=== PATIENT | female | born 1950 | race Two or more races ===

== ENCOUNTER → 2024-03-29 08:14 | Outpatient (REF) | payer MEDICARE, OTHER, SELFPAY ==
--- NOTE | 2024-03-30 08:06 | HPS.HSE ---
Family Physician
-
Family Physician: Consuelo Acevedo
Chief Complaint
-
Gynecologic Cancer (Ovary)
History of Present Illness
73�year�old��woman�presenting�for�surgical�consultation�with�a�known�diagnosis�of�high�grade�serous�carcinoma�referred�to�me by�Dr�Ian�Chasky.�
Patient�has�had�a�routine�mammogram�that�was�abnormal�in�October�2017,�underwent�a�core�needle�biopsy�November�nd was�found�to�have�invasive�ductal�carcinoma�grade�2�ER/MO�positive�HER2�1�positive�she�then�underwent�left�lumpectomy�and
sentinel�lymph�node�biopsies�showing�residual�16mm�invasive�ductal�carcinoma�with�2�lymph�nodes�which�were�negative.�BRCA test�was�performed�and�the�result�was�shown�that�she�was�low�risk.�Test�was�negative�for�any�mutation.�She�did�undergo�adjuvant
radiation�to�the�left�breast�and�completed�this�in�February�2018.�She�started�Arimidex�in�March�2019.�this�was�recently�completed after�5�years.�
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
lymphoma.�She�was�followed�by�Dr�Holloway�for�this�initially�and�on�PET�scn�some�abnormalities�showed�early�summer.� Biopsy�of�the�abdominal�wall�mass�was�performed�[place]�1,�revealing�high�grade�serous�carcinoma�metastatic�from�a
m�llerian�tract�primary.�There�is�reactivity�for�CK7�WT1�ER�and�p16,�negative�for�CK20�Napsin�1�TTF�1�and�MO.�she�saw�Dr Warshall�a�couple�times�and�considered�primary�debulking�surgery�v�NACT�but�was�very�concerned�about�possible�need�for�bowel
resection�and�rare�possibility�of�ostomy�formation�post�op.�She�started�NACT�with�taxol�carbo�initially�with�Dr�Damsker�and�her�care
was�transferred�to�Dr�Chasky.�Lat�week�she�did�receive�cycle�3.�There�seems�to�have�been�not�initial�CA�125�marker�drawn.�most recent�CA�125�is�35.�
Social�History Patient�denies�ever�using�tobacco. Social�use�of�alcohol. Denies�any�illicit�drug�use. Patient�has�not�had�any�occupational�exposure. Marital�Status:�Patient�is�
�is�older,�recent�covid,�and�pneumonia�,�prolonged�hospitalization,�her�is�recovering�in�SNF Gynecological�History
Age�at�Menarche�14�years.�Age�at�menopause:�47�years.�Patient�reports�1�pregnancies.�Her�age�at�first�full�term��was�42 years. No�history�of�hormone�replacement�therapy. Family�Medical�History Father�prostate�ca Mother�colon�Ca
Patient�Reported�Level�of�Pain Pain:�no�pain
Exams: CT Chest/abd/pel W Iv Cont
CPT: 07918, 53071
EXAMINATION: CT of the chest, abdomen and pelvis with intravenous contrast.
INDICATION: Malignant neoplasm of the right ovary.
TECHNIQUE: Contiguous helical acquisition from the apices of the lungs through the pubic symphysis following the intravenous administration of 80 mL of Omnipaque-350. Delayed phase images were obtained of the lower abdomen and pelvis. Oral contrast
was administered. Axial reconstructions and sagittal, coronal, and sagittal oblique reformats provided. Automated dose reduction technique was utilized for this exam.
COMPARISON: No prior studies available for comparison.
FINDINGS:
Vascular: The thoracoabdominal aorta is of normal caliber, without evidence of aortic aneurysm or dissection. Major aortic branches are patent.
The IVC is of normal caliber.
Thyroid: No significant enlargement, and no significant nodules appreciated.
Supraclavicular region: No pathologic lymphadenopathy appreciated.
Axillary region: No pathologic axillary lymphadenopathy is appreciated on either side.
Mediastinum: No pathologic mediastinal lymphadenopathy. No significant pericardial effusion.
Surgical clips are seen within the left breast and left axilla.
Lungs: The lungs are clear, without evidence of lobar consolidation, pleural effusion, pneumothorax, or significant emphysema .
Airways: The trachea and major bronchi are of normal caliber. No large endotracheal or endobronchial lesions are appreciated.
Bones: No focal aggressive osseous lesions are seen within the chest. Mild degenerative change is seen within the thoracic spine.
Abdomen:
Peritoneum: No free air is seen within the peritoneal cavity.
Retroperitoneum: No pathologic lymphadenopathy is seen within the retroperitoneum.
Vessels: The abdominal aorta is of normal caliber. The IVC is within normal limits.
Liver: No focal liver masses appreciated. Attenuation of the liver is within normal limits, and the hepatic contour is smooth.
Bile Ducts: No significant biliary ductal dilation.
Gallbladder: Gallbladder is normal in size, without adjacent inflammatory change. No radiopaque gallstones are seen.
Spleen: Spleen is not visualized.
Pancreas: No pancreatic mass or adjacent inflammatory change.
Adrenals: No adrenal mass appreciated.
Kidneys/Ureters: No nephrolithiasis or hydronephrosis on either side. No aggressive renal mass appreciated. The ureters are nondilated .
Bowel: Mild colonic diverticulosis is seen, most pronounced in the sigmoid, without associated inflammatory change to suggest diverticulitis .
Appendix:The appendix is not well-visualized, however no inflammatory changes are identified to suggest appendicitis.
Pelvis: No free fluid is seen within the pelvis. No pathologic pelvic lymphadenopathy .
Reproductive Organs: Calcifications are seen within the uterus, suggestive of degenerated uterine fibroids.
Left ovary measures 3 cm in diameter, and the right ovary measures 2.9 cm in diameter.
Bladder: No significant bladder wall thickening or adjacent fat stranding.
Abdominal Wall: Subcutaneous masses are seen within the anterior abdominal wall in the supraumbilical region, best seen on sagittal images 60-65, and axial images 27-31. Subcutaneous masses measure up to 1.9 cm in diameter. No ventral wall hernia is
seen in this area.
A left inguinal hernia is identified, containing mesenteric fat. A soft tissue lesion is seen within the left inguinal hernia sac, measuring 1.3 cm in greatest dimension.
Bones: No focal aggressive osseous lesions are seen. Mild degenerative change within the lumbar spine.
IMPRESSION:
1. Several subcutaneous masses are seen within the anterior abdominal wall near the midline in the supraumbilical region, measuring up to 1.9 cm in diameter. These may represent subcutaneous metastases or other subcutaneous masses.
2. Left inguinal hernia, fat-containing. Small soft tissue nodule within the left inguinal hernia measures 1.3 cm in diameter, and may represent a mesenteric lymph node, or changes of prior hernia incarceration.
3. Each ovary measures approximately 3 cm in diameter, which may be enlarged for a postmenopausal female. These correlate with prior imaging if available, and if indicated with pelvic ultrasound.
Medical History
Past Medical History
Past Medical History: Reports HTN
Past Surgical History: Reports Other (splenectomy)
Social History
Unable to obtain full social history at this time due to: Other
Tobacco: Non-smoker
Alcohol: None
Drug: None
Family History
Family History: Not pertinent
Allergies / Home Medications
Allergies reflects when Allergies were last updated in [facility].
Home Medications with original date entered in [facility]
Allergy/Medication List:
NKDA
Review of Systems
-
Unable to obtain full review of systems at this time due to: Other
History Source: Patient
A 12 point ROS was completed and negative except as noted: Yes
Physical Exam
Vital Signs
Physical Exam
Pelvic Examination: Restaurant Expeditor present
External normal labia, urethra, anus.
Vagina: Normal mucosa. atrophic changes, only admits a pediatric speculum
Cervix: normal appearance, no discharge.
Uterus: normal size.
Adnexa: No pelvic mass.
RVE: no masses or nodularity, there is no fixation or nodulrity
General: Well developed, well nourished patient. In no acute distress.short stature
Head: Atraumatic and normocephalic. alopcia noted
Neck: No thyromegaly. No cervical lymphadenopathy.
Lungs: Clear to auscultation. Good air movement bilaterally.
Cardiac: Regular rate. Regular rhythm. No murmurs appreciated.
Right Breast: No masses or dimpling. No nipple discharge.
Left Breast: scarred and smaller due to lupectomy and RT, no distict mass No masses or dimpling.
Abdomen: Abdomen is soft. Non�tender to palpation. Non�distended.
midline incision upper abdomen firm scar just above umbilicus
Extremities: No edema.
Hematologic/Lymphatic: No palpable lymphadenopathy.
Musculoskeletal: Normal range of motion. Strength and Tone are normal.
Skin:Non�jaundiced. No petechia. No purpura.
Neurologic: Speech is fluent. Normal gait and station. Cranial nerves intact
Physical Exam
General: Well Developed, Well Nourished and No Apparent Distress
Data Reviewed
-
CT Scan: Image Personally Visualized and interpreted
Impression/Plan
-
IMPRESSION:
PLAN: I��had��a��lengthy��discussion��with��the��patient��and�adopted�daughter�today��and��reviewed��the��following.��She��has��received��3�
cycles��of��neoadjuvant�chemotherapy��regimen��a��combination��of��Taxol,��carboplatin�.��She�was�seen�for�surgical�opinion�by�Bench Precision Assembler Oncologist�Dr�Warshal�at�[facility]�previously.
1.�We�have�option�to�proceed��with��interval�debulking�surgery��approximately��4��weeks��after��completion��of��cycle��3��or�cycle�4
chemotherapy.�I�am�unable�to�determine�how�she�has�responded�as�i�dont�have�trend�of�her�CA125�nor�do�i�have�access�today�to
any�of�her�imaging.�However,�assuming�she�has�a�partial�response,�This�will�be�the�potentially�last�week�of�Sofya�of�October�,
she�is�considering�options�given�some�of�her�social�obligations�including�her��birthday.�(will�let�me�know�by�Addy�of�her decision�re�timing�of�surgery)�
2.�The��patient��is�informed�that�goal�of�surgery�is�removal�of�all�visible�residual�disease.�this�will�be�done�via�laparotomy,�and
include�total��abdominal�hysterectomy��bilateral��salpingo�oophorectomy,��omentectomy,��pelvic��and��aortic��lymph��node� dissection,��tumor�debulking,��possible��bowel��resection.�
3.�I��am��recommending��laboratory��evaluation��and��a��CT��of��chest��abdomen��and��pelvis��for��assessment��of��response��.�she�is
set�up�next�week�for�a�PET�CT�at�[facility].�She�needs�to�bring�a�copy�of�her�disc�for�CT�or�PET�CT�for�my�review�preoperatively.� 4.�I��recommended��MiraLAX��bowel��prep��prior��to��surgery�
5.�I��discussed��risk��of��surgery��to��include��but��not��limited��to��infection,��bleeding,��injury��to��adjacent��organs,��DVT��pulmonary� embolism��and�cardiovascular��complications�
6.�I��did��recommend��that��postoperatively��she��will��see��me��in��the��office��2�weeks�later��to��review��the��results��and��assess� her��recovery.� She�and�her�family�want�surgery�to�be�performed�at[facility].�
7.�I��did��request��that��she��has��a��preoperative��evaluation��by��her��primary��care��physician�as�well�as�her�information systems security analyst,��within� recent��ECG��for��cardiovascular��evaluation.�
8.�We��discussed��long�term��prognosis��of��ovarian��cancer.�she�was�informed�that�tumor�will�need�evaluation�for�both�NGS�and
HRD�(as�per�NCCN)�and�we�will�likely�offer�some�form�of�maintenance�therapy.�She�understands�but�is�disappointed�to�learn�3�4 more�cycles�of�chemo�is�needed�post�op�prior�to�starting�maintenance�therapy.�
She�has�had�in�the�past�germline�testing�and�is�apparently�BRCA�negative,�i�asked�her�to�bring�me�a�copy�of�the�results.�(NCCN guidelines�followed)�
== END ==
LOC: HWRAD 08:14
PROVIDERS: ATTENDING PHYSICIAN Obstetrics & Gynecology Gynecologic Oncology; FAMILY PHYSICIAN Student in an Organized Health Care Education/Training Program
DX: C56.1 Malignant neoplasm of right ovary (principal); C50.912 Malignant neoplasm of unspecified site of left female breast; C88.4 Extranodal marginal zone B-cell lymphoma of mucosa-associated lymphoid tissue [MALT-lymphoma]
CPT/HCPCS: 71260; 74177; Q9967

== ENCOUNTER 2024-03-31 06:10 | Inpatient (IN) | payer MEDICARE, OTHER, SELFPAY ==
[2024-03-31] VITALS (90 sets, daily range): BP systolic 83–147; BP diastolic 44–87; BMI 20.4; BMI 22.8
[2024-03-31] MEDS: NORMOSOL-R/PLASMALYTE-A 1000 IV (06:54)
[2024-03-31] MEDS: TYLENOL 1000 MG PO ×2 (06:57→17:39)
[2024-03-31] MEDS: NEURONTIN 300 MG PO (06:57)
[2024-03-31] MEDS: CELEBREX 200 MG PO (06:57)
[2024-03-31] MEDS: HEPARIN 5000 UNITS SC (07:01)
[2024-03-31] MEDS: NSS 500 IV (11:40)
[2024-03-31] MEDS: NEO-SYNEPHRINE 250 IV (11:50)
--- NOTE | 2024-03-31 11:55 | SUR.PHASEI ---
Received pt from OR with low BP's. Curtis NUNN at bedside and giving pushes of Willam to help maintain BP. Dr. Valdivia notified. Dr. Hunt in room also made aware and 500ml fluid bolus ordered and hanging. Willam gtt started to keep MAP above 65. Will
continue to monitor pt. closely.
[2024-03-31] MEDS: DILAUDID 0.25 MG IV (11:57)
[2024-03-31 12:03] LABS: Hematocrit 29.7 % (37.0-47.0); Hemoglobin 10.2 g/dL (12.0-16.0); Mean Corp Hgb Conc. 34.3 g/dL (33.0-37.0); Mean Corpuscular Hgb 32.8 pg (27.0-31.0); Mean Corpuscular Volume 95.5 fL (81.0-99.0); Mean Platelet Volume 9.8 fL (7.4-10.4); Platelet Count 295 10^3/uL (130-400); Red Blood Cell Count 3.11 10^6/uL (4.20-5.40); Red Cell Dist. Width 16.9 % (11.5-14.5); White Blood Cell Count 30.6 10^3/uL (4.8-10.8)
[2024-03-31] MEDS: DILAUDID 0.5 MG IV ×2 (12:12→16:33)
[2024-03-31 12:13] LABS: Blood Urea Nitrogen 9 mg/dl (7-17); Calcium 7.9 mg/dl (8.4-10.2); Carbon Dioxide 23 mmol/L (22-30); Chloride 105 mmol/L (98-107); Estimated Creatinine Clearance 60 ml/min; Glucose 160 mg/dl (70-99); Potassium 3.2 mmol/L (3.5-5.1); Sodium 139 mmol/L (135-145); eGFR > 60.00
[2024-03-31 12:14] LABS: Magnesium 2.2 mg/dl (1.6-2.3)
[2024-03-31] MEDS: NSS 1000 IV ×2 (12:24→23:33)
--- NOTE | 2024-03-31 12:56 | HPS.HSE ---
Family Physician
-
Family Physician: Consuelo Acevedo
Chief Complaint
-
Post ovarian CA abdominal debulking with hypotension, hypoxia, episodes of apnea
History of Present Illness
73-year-old female status post hysterectomy with bilateral salpingo-oophorectomy, pelvic omentum removal, radical tumor debulking, colorectal anastomosis, anterior abdominal wall tumor implant today by Dr. Hunt.
She is currently very drowsy falls asleep during exam with episodes of apnea and oxygen dropping to 65%. This recovers when she is awoken. She has required Willam-Synephrine drip during the entire case and postop. She also received 2500 cc of IV
fluids for hypotension. She denies headache, sore throat, chest pain, palpitations, shortness breath, cough, nausea, vomiting, diarrhea. She does complain of abdominal pain with sensation of needing to pass gas. She has a Oh catheter in at
present time. 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 She underwent chemotherapy with Taxol and carboplatin initially with Dr. Lucero and was
transferred to Dr. Ash in [place]. She did receive cycle three 1 week ago. 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
2017. She was BRCA low risk. She also underwent radiation to this left breast that was completed in August 2018 and was on Arimidex until September 2018 she has recently completed 5 years of this therapy., She noted to have enlarged spleen 18 cm
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 Holloway for her lymphoma, other history hypertension occasional wine use, heart murmur.
Medical History
Past Medical History
Past Medical History: Reports Other
Additional Past Medical History:
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 She was BRCA low risk.
Radiation to this left breast that was completed in August 2018 and was on Arimidex until September 2018 she has recently completed 5 years of this therapy.,
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
Hypertension
occasional wine use
heart murmur
Past Surgical History: Reports Other
Additional Past Surgical History:
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
Bilateral salpingo-oophorectomy, pelvic omentum removal, radical tumor debulking, colorectal anastomosis, anterior abdominal wall tumor implant today by Dr. Hunt 03/31/2024
left lumpectomy and sentinel lymph node biopsies in May 2018
Tonsillectomy
Appendectomy
Splenectomy showing lymphoma
Inguinal hernia repair 2020
Social History
Tobacco: Non-smoker
Alcohol: Other (Was prior 1 glass of wine a night at dinner states has not had any while)
Personal:
Living: With Family ( Robert)
Employment: Retired
Family History
Family History: Other (Father history of prostate cancer mother history colon cancer)
Allergies / Home Medications
Allergies reflects when Allergies were last updated in [facility].
Home Medications with original date entered in [facility]
Allergy/Medication List:
Allergies
Allergy/AdvReac Type Severity Reaction Status Date / Time
No Known Allergies Allergy Unverified 03/31/24 06:43
Home Medications
amlodipine 5 mg tablet 5 mg PO DAILY 03/27/24
cholecalciferol (vitamin D3) 25 mcg (1,000 unit) tablet (Vitamin D3) 25 mcg PO DAILY 03/27/24
metoprolol succinate 25 mg tablet,extended release 24 hr 12.5 mg PO HS 03/27/24
valsartan 160 mg tablet 160 mg PO DAILY 03/27/24
bisacodyl 5 mg tablet,delayed release (Dulcolax (bisacodyl)) 5 mg PO DIRECTED 03/28/24
polyethylene glycol 3350 17 gram oral powder packet (Miralax) 17 g PO DIRECTED 03/28/24
Review of Systems
-
History Source: Patient and Other (Medical chart, nurse at bedside)
A 12 point ROS was completed and negative except as noted: Yes
Constitutional: Reports Fatigue and Other (Drowsy with episodes of apnea postop recovery); Denies Fever
EENT: Reports Other (Dry oral mucosa); Denies Sore Throat or Mouth Swelling
Respiratory: Denies Cough or Trouble Breathing
Cardiac: Denies Chest Pain, Diaphoresis, Palpitations or Syncope
Abdomen/GI: Reports Abdominal Pain (Secondary to longitudinal incision with major debulking); Denies Nausea, Vomiting, Diarrhea, Constipated, Bloody Stools or Black Stools
: Reports Oh (Present in PACU)
Musculoskeletal: Denies Joint Pain or Edema
Skin: Denies Itching or Rash
Neurological: Denies Dizzy, Headache or Weakness
Endocrine: Reports No Symptoms
Hematologic/Lymphatic: Reports No Symptoms
Psych: Reports Calm
Physical Exam
Vital Signs
Vital Signs
Temp Pulse Resp BP Pulse Ox
97.1 F 80 15 140/69 99
03/31/24 11:20 03/31/24 12:05 03/31/24 12:05 03/31/24 12:05 03/31/24 12:35
Physical Exam
General: Conversant, Pain (Abdominal area complains feels like gas) and Other (Very drowsy falls asleep during exam has episodes of hypoxia dropping O2 to 65% is requiring nasal cannula oxygen 2 L); No Fever or Chills
HEENT: NormoCephalic, Anicteric, PERRLA, [place] Conjunctivae, No Ptosis, Oxygen (2 L) and Other (Dry oral mucosa)
Respiratory: Clear; No Wheezes, Rales or Rhonchi
Cardiac: S1/S2 and Regular Rhythm; No Murmur, Rub, Gallop or Peripheral Edema
Breast: Deferred by me
GI: Soft, Normal Bowel Sounds, Tender (Generalized) and Other (Longitudinal Aquacel dressing in place no surrounding drainage or erythema)
Rectal: Deferred by Provider
Genito-urinary: Oh
Musculoskeletal: No Clubbing, No Cyanosis and No Edema
Skin: Warm, Dry and Other (Port right upper chest wall); No Rash
Neuro: No Motor Deficits, Cranial Nerves Intact, No Sensory Deficits, Sedated and Other (Very drowsy falls asleep during exam has episodes of hypoxia dropping O2 to 65% is requiring nasal cannula oxygen 2 L); No Slurred Speech, Facial Droop or
Tremors
Psych: Calm
Laboratory Results
-
03/31/24 11:48
03/31/24 11:48
Data Reviewed
-
Lab Data: Labs Reviewed by me
Impression/Plan
-
Impression/plan:
Medical consultation
Admit to ICU
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
#S/p hysterectomy with bilateral salpingo-oophorectomy, pelvic omentum removal, radical tumor debulking, colorectal anastomosis, anterior abdominal wall tumor implant today by Dr. Hunt.
#Patient on chemotherapy Taxol and carboplatin last infusion was 3 weeks ago she reports she has 3 infusions left follows with in [place]
Hgb stable 10.6
Preop Ancef was given in ER
-Consult Dr. Hunt
-Clear liquids as tolerated
-Tylenol 1000 mg p.o. every 6 hours
-Toradol 15 mg IV every 6 hours prn
-Dilaudid 0.5 mg every 4 hours as needed with bowerl regimen
-IV NSS 100 cc/hr
-Patient with Aquacel longitudinal dressing intact monitor daily for drainage
-Continue Oh catheter
-IV Protonix 40 mg daily
-Follow CBC, CMP
-PT/OT/case management consult
#Acute hypotension secondary to surgery/prolonged anesthesia/opiate administration
#Hx HTN�benign
-Patient required Willam-Synephrine during entire case is still requiring
-Continue Willam-Synephrine
-Patient given 2500 cc NSS bolus in ER
-Continue IV NSS 100 cc an hour
-Consult Traffic Court Referee
-Hold amlodipine 5 mg daily, metoprolol succinate 12.5 mg at bedtime, valsartan 160 mg daily
#Acute hypoxic resp insufficiency with episodes of apnea secondary to surgical anesthesia and pain control with opiates
Pulse ox will drop as low as 65% is 97% on 2 L nasal cannula
-Supportive O2 nasal cannula
-Afebrile, negative cough
#Hypokalemia possible medication versus malnutrition
K3.2
-KCl 40 mEq IV
-Follow BMP
#Acute leukocytosis likely reactive to major abdominal surgery history lymphoma unknown baseline
-Currently afebrile nontoxic-appearing
-Will follow CBC with differential
#Invasive ductal carcinoma grade 2 ER/NV positive HER2 positive
# HX left lumpectomy and sentinel lymph node biopsies in May 2018. She was BRCA low risk. She also underwent radiation to this left breast that was completed in August 2018
-Completed 5-year Arimidex September 2018
# hx Marginal zone lymphoma
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 Holloway for her lymphoma
DVT prophylaxis
Subcu heparin
Full code
[2024-03-31] MEDS: TYLENOL PO ×2 (13:16→23:36)
[2024-03-31] MEDS: KCL 270 MEQ IV (13:35)
[2024-03-31 13:45] LABS: Absolute Neutrophils -Man Diff 30.2 10^3/uL (1.4-6.5); Band Neutrophils 11 % (0-3); Lymphocytes 1 % (20-51); Segmented Neutrophils 88 % (42-75)
[2024-03-31 13:46] LABS: Platelets Checked Yes
[2024-03-31 13:47] LABS: Acanthocytes 1+; Normal RBC Morphology No; Total Cells Counted 100
[2024-03-31 13:48] LABS: Anisocytosis 1+; Schistocytes Occasional
[2024-03-31 13:49] LABS: Hypochromasia 1+; Poikilocytosis 1+
[2024-03-31 13:50] LABS: Nucleated Red Blood Cells % 0 %
--- NOTE | 2024-03-31 14:02 | W.PN.UPDATE ---
Update Note
Progress Note Update
The patient is seen and examined at the bedside in the PACU, and I reviewed the history and physical at length with Kellen. See H & P for full note details.
I agree with her history and physical and assessment and plan of care with following changes/additions- double vision.
She presented for elective surgery with Merchandise Clerk Onc. Dr. 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
SPLENECTOMY
In PACU, she is on levophed gtt at the lowest dosing, and SBP is low 100s. She is afebrile.
-Lungs CTA b/l no w/r/r
CV- RRR, no m/r/g
Abd post op tenderness
Neuro-double vision resolves when she covers one eye or the other, no other motor nor sensory deficits
Currently, status post hysterectomy with bilateral salpingo-oophorectomy, pelvic omentum removal, radical tumor debulking, colorectal anastomosis, anterior abdominal wall tumor implant today by Dr. Hunt.
She is somnolent though arousable and appropriately answering questions, post-op. She drifts back to sleep and has periods of apnea with O2 down to 65% on RA, and she was put on 2L NC
She is complaining of doube vision, present during
s/p 2500 mL NS in PACU
Will admit to ICU for close monitoring of respiratory and hemodynamic status post-op
-Const Vineyard Supervisor
-Consult Dr. Hunt
-continue Levo gtt and wean to keep BP > 90
-cont NC 2L and wean to off to keep O2 > 94%
-Clear liquids as tolerated
-Tylenol 1000 mg p.o. every 6 hours
-Toradol 15 mg IV every 6 hours prn
-Dilaudid 0.5 mg every 4 hours as needed with bowerl regimen
-IV NSS 100 cc/hr
-Patient with Aquacel longitudinal dressing intact monitor daily for drainage
-Continue Oh catheter
-IV Protonix 40 mg daily
-Follow CBC, CMP
-PT/OT/case management consult
-Hold amlodipine 5 mg daily, metoprolol succinate 12.5 mg at bedtime, valsartan 160 mg daily
-KCl 40 mEq IV
-Follow BMP
#Double Vision, no other focal neurologic deficits
-possibly due to post-op recovery from anesthesia/eye muscle related- will continue to monitor
DVT prophylaxis
Subcu heparin
Full code
65 minutes of critical care time is spent on the care of this patient
[2024-03-31 14:04] LABS: ALT (SGPT) 11 U/L (0-35); AST (SGOT) 25 U/L (14-36); Albumin 3.2 g/dl (3.5-5.0); Alkaline Phosphatase 90 U/L (38-126); Direct Bilirubin 0.2 mg/dl (0.0-0.4); Total Bilirubin 0.4 mg/dl (0.2-1.3); Total Protein 5.3 g/dl (6.3-8.2)
--- NOTE | 2024-03-31 14:06 | CON.INTV ---
Consultation
Consultation Request
Date/Time Consultation Requested: 03/31/2024 - 1333
Date/Time Consultation Performed: 03/31/2024 - 1351
Requesting Provider: TANESHA Haley
Performing Provider: Laurent Rose MD
Reason for Consultation: Postoperative hypotension/hypoxia
Medical History
-
Chief Complaint: Elective intra-abdominal tumor debulking
History of Present Illness:
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 Patient is known to the oncology service with last visit with
Dr. Hunt on 03/10/2024 in which surgical options regarding her high-grade serous carcinoma was discussed. 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 She had
started chemotherapy with last chemotherapy given in last week of February. Debulking was reviewed including its risks and benefits. Today she underwent exploratory laparotomy with radical tumor debulking with total abdominal hysterectomy, bilateral
salpingo-� oophorectomy resection of anterior and posterior cul-de-sac, bilateral pelvic lymphadenectomy, infracolic and gastrocolic omentectomy, resection of multiple peritoneal tumor implants, sigmoid colectomy and resection of supraumbilical
anterior abdominal wall subcutaneous tumor. EBL was 250 cc and there were no immediate complications. Unfortunately postoperatively she was hypotensive and hypoxic. She had received 2.5 L of IVF and had periods of apnea with saturations dropping
to the 60s. She was started on vasopressors with Willam-Synephrine and transferred to the ICU for closer monitoring. Weigh And Charge Worker services now consulted for additional management/recommendations.
When I saw the patient, she was in bed in no acute distress. Currently on Willam-Synephrine at 30mcg/min with BP 105/60, heart rate 80 and saturating 90% on 2 L/min nasal cannula. She feels sore in her belly but otherwise denies chest pain, SOB, REID,
nausea, fevers or chills. She usually gets her care done at [facility]. She is also currently on NS 0.9% at 100 cc/hr.
PMHx: High-grade serous ovarian carcinoma, history of left breast invasive ductal carcinoma (triple positive) s/p lumpectomy/XRT, history of marginal zone lymphoma, hypertension
PSHx: Lumpectomy, splenectomy, tonsillectomy, appendectomy, inguinal hernia repair
Past Medical History
Past Medical History: Other (Above as per HPI)
Past Surgical History: Other (Above as per HPI)
Social History
Tobacco: Non-smoker
Alcohol: Occasional
Drug: None
Personal:
Living: With Family
Family History
Family History: Cancer (Father: Prostate cancer; mother: Colon cancer)
Allergies / Home Medications
Allergies
Allergy/AdvReac Type Severity Reaction Status Date / Time
No Known Allergies Allergy Unverified 03/31/24 06:43
Home Medications
�Medication �Instructions �Recorded �Confirmed �Last Taken �Type
amlodipine 5 mg tablet 5 mg PO DAILY 03/27/24 03/31/24 03/31/24 05:15 History
cholecalciferol (vitamin D3) 25 25 mcg PO DAILY 03/27/24 03/31/24 03/27/24 History
mcg (1,000 unit) tablet (Vitamin
D3)
metoprolol succinate 25 mg 12.5 mg PO HS 03/27/24 03/31/24 03/30/24 21:30 History
tablet,extended release 24 hr
valsartan 160 mg tablet 160 mg PO DAILY 03/27/24 03/31/24 03/30/24 09:00 History
bisacodyl 5 mg tablet,delayed 5 mg PO DIRECTED 03/28/24 03/31/24 03/30/24 16:00 History
release (Dulcolax (bisacodyl))
polyethylene glycol 3350 17 gram 17 g PO DIRECTED 03/28/24 03/31/24 03/30/24 14:30 History
oral powder packet (Miralax)
Review of Systems
-
History Source: Patient
All other systems: Negative unless noted
Vitals / Labs / Diagnostic Testing
Vital Signs
Temp Pulse Resp BP Pulse Ox
97.5 F 77 15 106/58 100
03/31/24 15:50 03/31/24 15:55 03/31/24 15:55 03/31/24 15:55 03/31/24 15:55
Lab Data
03/31/24 14:54
03/31/24 11:48
Laboratory Results
03/31/24
14:07
PT 17.4 H
INR 1.45
APTT 30.0
Diagnostic Testing:
Physical Exam
-
HEENT: Normocephalic and Anicteric
Cardiovascular: S1/S2 and Peripheral Edema (negative)
Respiratory: Wheeze (negative), Rales (negative), Rhonchi (negative) and Non-Labored Respirations
GI: Soft, Non Distended, Tender (epigastrium) and Normal Bowel Sounds
Neurology: AO x 3 and Tremors (negative)
Skin: Warm and Dry
General: Respiratory Distress (negative), Chills (negative) and Sweats (negative)
Assessment
-
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 Patient is known to the oncology service with
last visit with Dr. Hunt on 03/10/2024 in which surgical options regarding her high-grade serous carcinoma was discussed. 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
primary. She had started chemotherapy with last chemotherapy given in last week of February. Debulking was reviewed including its risks and benefits. Today she underwent exploratory laparotomy with radical tumor debulking with total abdominal
hysterectomy, bilateral salpingo-� oophorectomy resection of anterior and posterior cul-de-sac, bilateral pelvic lymphadenectomy, infracolic and gastrocolic omentectomy, resection of multiple peritoneal tumor implants, sigmoid colectomy and
resection of supraumbilical anterior abdominal wall subcutaneous tumor. EBL was 250 cc and there were no immediate complications. Unfortunately postoperatively she was hypotensive and hypoxic. She had received 2.5 L of IVF and had periods of
apnea with saturations dropping to the 60s. She was started on vasopressors with Willam-Synephrine and transferred to the ICU for closer monitoring. Weigh And Charge Worker services now consulted for additional management/recommendations.
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
Impression:
#High-grade serous ovarian carcinoma s/p neoadjuvant chemotherapy s/p ex lap w/ radical tumor debulking + sigmoid colectomy w/ colorectal anastomosis & resection of supraumbilical abd. wall subcutaneous tumor (POD #0)
#Postoperative hypotension now on vasopressors � likely due to anesthesia with possible translocation of gut bacteria given the extent of tumor debulking
#Leukocytosis likely due to transient bacteremia/sepsis
#Acute respiratory failure with hypoxia currently on supplemental oxygen
#Anemia
#Hypokalemia
#History of left breast invasive ductal carcinoma (ER, [place], HER2 positive) s/p lumpectomy/XRT
#History of marginal zone lymphoma
#History of splenectomy
Plan:
- Post-operative management as per gynecology�oncology
- Follow-up pathology from the OR today
- Given the extent of tumor debulking with resection of her infracolic + gastrocolic omentum and sigmoid colectomy, she is at risk of transient bacteremia with gut abraham
- She is also of increased risk of infection given her history of splenectomy
- Start Zosyn and check set of blood cultures
- Would plan for at least 5-7 days, possibly 10-14 depending on her continued hospital course with need for vasopressors
- Continue with vasopressors and if not weaned off willam over next few hours then switch to levophed
- Keep MAP>65
- Wean off vasopressors as tolerated
- Continue maintenance IVF with NS 0.9% @ 100cc/hr; wean off as her diet advances
- Maintain SpO2 >90-94%
- Aspiration precautions and keep HOB >30-45�
- Pain control
- Replete electrolytes with K>4, Mg>2
- Maintain euglycemia with goal BG 140-180
- prn nebulized bronchodilators - not currently bronchospastic
- Incentive spirometer encouraged 10x per hour for at least 4 hrs a day
- DVT ppx: SCDs for now; defer starting chemical ppx to mechanical manufacturing engineer-oncology given the extent of her surgery today
Critical care statement: A total of 40 minutes of critical care time was provided for this patient today. This includes management of unstable vital signs, evaluation of the patient at bedside, reviewing the patient's pertinent medical records
including radiographs, microbiology, laboratory evaluations, and discussion with primary team, consultants, pharmacy, nutrition, physical therapy, case management, charge nurse, critical care nursing, and respiratory therapy.
Data:
CT chest/abdomen/pelvis with IV contrast 03/29/2024:
1. Several subcutaneous masses are seen within the anterior abdominal wall near the midline in the supraumbilical region, measuring up to 1.9 cm in diameter. These may represent subcutaneous metastases or other subcutaneous masses.
2. Left inguinal hernia, fat-containing. Small soft tissue nodule within the left inguinal hernia measures 1.3 cm in diameter, and may represent a mesenteric lymph node, or changes of prior hernia incarceration.
3. Each ovary measures approximately 3 cm in diameter, which may be enlarged for a postmenopausal female. These correlate with prior imaging if available, and if indicated with pelvic ultrasound.
--- NOTE | 2024-03-31 14:10 | SUR.PHASEI ---
Pt continues to have periods of apnea. Kellen Heavenly notified and no new orders at this time. Will continue to monitor
--- NOTE | 2024-03-31 14:20 | OR.RPT ---
Operative Report
Operative Report
Date of procedure: March 31, 2024
Preoperative diagnosis: High-grade serous carcinoma of ovary status post neoadjuvant chemotherapy
Postoperative diagnosis: Same status post interval cytoreductive surgery
Procedure:
Exploratory laparotomy, radical tumor debulking including total abdominal hysterectomy, bilateral salpingo-oophorectomy resection of anterior and posterior cul-de-sac, bilateral pelvic lymphadenectomy, infracolic and gastrocolic omentectomy,
resection of multiple peritoneal tumor implants including cecal implant and the right round ligament implant
Sigmoid colectomy with low colorectal anastomosis, mobilization of splenic flexure, rigid sigmoidoscopy
Resection of supraumbilical anterior abdominal wall subcutaneous tumor
Surgeon: Rene Hunt MD
Assist: Virgilio Joseph MD
Colorectal Wastewater Plant Civil Engineer: Vamshi Maxwell MD
Estimated blood loss 250 cc
Complications none
Anesthesia: General Endotracheal intubation and TAP block
Procedure in detail: This patient was brought to the operating room for interval cytoreductive surgery after receiving neoadjuvant chemotherapy. She has been diagnosed with probable stage IIIc high-grade serous carcinoma of ovary. Upon arrival to
the operating room she was placed in supine position general anesthesia was administered and fiberoptic intubation was performed. Once this was completed tap block was performed by anesthesia team. Next appropriate IVs were placed, she was placed
in lithotomy position using yellowfin stirrups and she was placed in dorsolithotomy position patient was prepped and draped on the abdomen perineum and vagina. Timeout procedure was carried out she received combination of Ancef and Flagyl for
prophylaxis. She had received DVT prophylaxis with heparin. Abdomen was entered through a midline vertical skin incision starting from symphysis pubis to the umbilicus around the umbilicus and up into the mid epigastrium overlying prior open
splenectomy incision. Subcutaneous tissue and fascia was opened. We recognized a lobulated 2 x 2.5 cm firm nodule above the fascia in the supraumbilical portion of the incision and the nodule of tumor along with its underlying fascia was removed
and submitted to pathology. The fascia was then further cleared up in preparation for closure of the abdomen later.
findings: We explored the abdomen and note right and left diaphragms to be within normal limits liver is unremarkable. Spleen is absent falciform ligament is without any tumor. There was evidence of small volume tumor below 2 cm involving portions
of the spleen and the left abdomen small bowel was examined from ligament of Treitz down to ileocecal valve and there was no abnormality present. Appendix is absent. There was a 5 mm tumor nodule and an adhesion adjacent to the cecum which was
excised and submitted to pathology right paracolic gutter was without any evidence of tumor left paracolic gutter contained a couple of tumor nodules both in the vicinity of 1 cm which were excised and submitted to pathology. The sigmoid colon
appeared to be significantly involved in multiple locations with left ovary and there were multiple deposits of tumor involving the serosa of the rectosigmoid and posterior cul-de-sac peritoneum. Both tubes and ovaries contained areas of visible
residual tumor that were probably less than 2 cm in size. There was an additional 2 to 3 cm tumor nodule involving right round ligament that extended into inguinal canal which was eventually resected. At the completion of surgery there was no
residual visible tumor. There was no evidence of retroperitoneal lymphadenopathy.
A Bookwalter retractor was placed and we retracted upper abdominal smith, initially we focused on omentectomy. We started from the hepatic flexure and detached the omentum from the transverse colon eventually entered the lesser sac a series of
omental vessels were sealed and divided we marched along the greater curvature of the stomach and sealed a series of short gastric vessels, there were areas of dense tumor involvement closer to the splenic flexure, this portion of the omentum was
freed up and eventually a complete omentectomy was performed. We were careful to visualize the pancreas and tail of pancreas and there was no injury or involvement of the pancreas. Next the entire splenic flexure of the colon was mobilized. This
was done in anticipation of needing to perform sigmoid colectomy and also reanastomosis. We also excised the tumor from the left paracolic gutter and submitted that to pathology. There was no injury to the bowel altogether. We turned our
attention to the pelvis and lateral abdominal smith were retractor. Bowel was packed in the upper abdomen. Right and left round ligaments were sealed and divided anterior and posterior leaves of the broad ligament were dissected open paravesical
and pararectal spaces were identified both ureters were tagged with Vesseloops for identification during the course of the procedure. Both infundibulopelvic ligaments were isolated sealed 3 times and divided tubes and ovaries were mobilized and
eventually detached from the uterus. The left tube and ovary was densely involved with the sigmoid colon on 2 separate areas and these were grossly cut and in order to allow removal of left ovary. These were submitted to pathology. We
excised the entire involved area of the anterior cul-de-sac and left attached to the uterus. Bladder flap was developed and advanced below the cervicovaginal junction. Uterine arteries followed by cardinal ligaments followed by uterosacral
ligaments were serially sealed and divided, right angle Zeppelin clamps were applied below the level of the cervix specimen was transected. 0 Vicryl suture was used to close the cuff in a mass closure fashion starting from center going to the
corners and back to the center in 2 layers. We held onto the vaginal apex and opened the incision in the posterior cul-de-sac in preparation to elevate and left and removed the cul-de-sac peritoneum. We turned our attention to the sigmoid colon,
we divided the colon using YUDY stapler above the level of the pelvic brim, the mesentery was sealed and divided with LigaSure device. Pedicle involving superior hemorrhoidal vessels was clamped and tied off with 2-0 silk tie and also sealed and
divided with vessel sealer. We entered the retrorectal space and a series of pedicles were sealed and divided in order to fully mobilize the posterior aspect of the colon. We then removed the entire peritoneum involving right and left side of the
pelvis and also posterior cul-de-sac by it from the course of the ureter and the residual parametria some of these areas involved residual tumor. Next a series of pedicles were developed around the rectum and the adipose tissue was
sealed and divided. Contour stapler was used to staple and transect across the rectosigmoid junction. The portion of sigmoid colon with posterior cul-de-sac peritoneum was submitted to pathology. Next we mobilized the splenic flexure of the
colon. There was excellent mobilization and allowed the descending colon to come in the pelvis without any evidence of tension.
Next we proceeded with bilateral pelvic lymphadenectomy removing the entire lymphatic tissue along the external iliac artery and vein starting from mid common iliac level down to the level of deep circumflex iliac artery and vein, the dissection was
continued along the hypogastric vessels and also obturator fossa anterior to the obturator nerves bilaterally. There was no injury to blood vessels or nerves or ureter. Good hemostasis was obtained. Right and left pelvic lymph nodes were
submitted to pathology.
Next we prepared for a colorectal anastomosis.I asked Dr Maxwell to join us for this portion of the procedure to help . There was good vascularit involving descending colon and there was good hemostasis throughout the pelvis.. We opened the
descending colon staple line, the anvil of a 28 mm EEA stapler was placed within the lumen of the colon a whipstitch of 2-0 Prolene suture was used to circumferentially go around the edge of the colon and this was tied securely with the anvil coming
through it. The EEA 28 mm stapler was introduced through the rectum after the rectal canal was dilated serially from 25-28 and 31 mm. The trocar was pierced just posterior to the staple line, the 2 ends were approximated and the stapler was fired
with descending colon without any twists. Stapler was fired approximately 1 minute later. We tested the stapler by examining the colorectal anastomosis using a rigid sigmoid diascopy, air was insufflated and there was no leakage of air present in
the abdomen filled with water. There were no other abnormalities present within the lumen of the sigmoid colon.
Next we irrigated all 4 quadrants of the abdomen with approximately 2 L of normal saline. All laps and instruments were removed and we prepared for closing. Closing table was used. We scrubbed out and scrubbed back in. The fascia involving the
anterior abdominal wall was closed with 0 looped PDS starting from both ends coming to the center of the lower aspect of the incision and these 2 sutures were tied to each other. Subcutaneous tissue was irrigated copiously and made hemostatic with
electrocautery. Mode were used to reapproximate the skin edges. Dressing was applied. Oh catheter was left in place. The patient was awakened extubated and returned back to recovery room stable awake and extubated condition. Counts of
laps instruments and needle was correct x 2. I was present and scrubbed for entire procedure as dictated above
Disposition to PACU, anticipate ICU admission secondary to extensive procedures and hypotension.
[2024-03-31 14:23] LABS: INR 1.45; PT 17.4 Sec (11.4-14.6)
[2024-03-31] MEDS: ZOFRAN 4 MG IV (15:19)
[2024-03-31 15:44] LABS: Hematocrit 29.7 % (37.0-47.0); Hemoglobin 10.1 g/dL (12.0-16.0); Mean Corpuscular Volume 97.1 fL (81.0-99.0); Mean Platelet Volume 10.2 fL (7.4-10.4); Platelet Count 297 10^3/uL (130-400); Red Blood Cell Count 3.06 10^6/uL (4.20-5.40); Red Cell Dist. Width 17.1 % (11.5-14.5); White Blood Cell Count 32.5 10^3/uL (4.8-10.8)
[2024-03-31] MEDS: TORADOL 15 MG IV ×2 (17:41→23:34)
[2024-03-31] MEDS: ZOSYN 100 IV ×2 (17:42→23:35)
[2024-03-31] MEDS: COMPAZINE 10 MG IV (17:56)
--- NOTE | 2024-03-31 18:29 | PTCARENOTE ---
patient received from PACU@[id number]. assessments per work list. patient alert, forgetful. c/o pain. c/o intermittent 'snow' in vision. Floorworker Lasting aware. medicated with dilaudid and scheduled medications. right chest wall port patent with good blood
return. lungs diminished. on room air when patient asleep, pulse oximeter drops to the 60's. 2liters maintained. abdominal dressing in place with drainage, unchanged per GENERAL INTERN. avery draining yellow urine. patient attempted clear liquids. became
nauseated. medicated with compazine per prn order. family at bedside. updated. call garcía in reach
[2024-03-31] MEDS: FLEXBUMIN 100 IV (19:12)
--- NOTE | 2024-03-31 19:38 | PTCARENOTE ---
received care of pt. approx 1900.
Drowsy but alert, follows simple commands appropriately, normocephalic, proper gaze w/o deviation.
Normotensive on phenylephrine. Normothermic, NSR w/o ectopy noted.
Abd incision showing slight shadowing on post op dressing.
Surgery rounded, believes pt. to be intravascularly dry orders as follows:
-Add Albumin
-if vasopressor demands persist switch to Norepi.
-If demands increase infuse 1 U PRBC.
Pt. offers no complaints of pain at this time, plan of care explained at length.
[2024-03-31 19:39] LABS: Hemoglobin 9.7 g/dL (12.0-16.0); Mean Corp Hgb Conc. 34.6 g/dL (33.0-37.0); Mean Corpuscular Hgb 33.2 pg (27.0-31.0); Mean Corpuscular Volume 95.9 fL (81.0-99.0); Mean Platelet Volume 9.9 fL (7.4-10.4); Platelet Count 280 10^3/uL (130-400); Red Blood Cell Count 2.92 10^6/uL (4.20-5.40); Red Cell Dist. Width 17.2 % (11.5-14.5); White Blood Cell Count 36.2 10^3/uL (4.8-10.8)
--- NOTE | 2024-03-31 23:42 | PTCARENOTE ---
Phenylephrine gtt off.
Pt. remains normotensive.
Assessment remains unchanged.
[2024-04-01] VITALS (60 sets, daily range): BP systolic 86–138; BP diastolic 49–94; PULSE 83; BMI 24.5
[2024-04-01] MEDS: FLEXBUMIN 100 IV (03:21)
--- NOTE | 2024-04-01 03:36 | PTCARENOTE ---
Patient MAP of 64, discussed with ICU KAROL, per discussion ok with MAPs greater than 60.
Remains off of all Vasopressors. Cont. Albumin.
Pt. complains of no pain, just mild soreness around surgical site, slight shadowing around post op dressing.
[2024-04-01] MEDS: DILAUDID 0.5 MG IV ×3 (03:47→22:36)
[2024-04-01 04:29] LABS: Blood Urea Nitrogen 12 mg/dl (7-17); Calcium 8.3 mg/dl (8.4-10.2); Carbon Dioxide 22 mmol/L (22-30); Chloride 109 mmol/L (98-107); Estimated Creatinine Clearance 56 ml/min; Glucose 137 mg/dl (70-99); Phosphorus 3.1 mg/dl (2.5-4.5); Potassium 4.3 mmol/L (3.5-5.1); Sodium 141 mmol/L (135-145); eGFR > 60.00
[2024-04-01 04:30] LABS: % Basophils 0.2 % (0-2); % Immature Granulocytes 0.5 % (0-0.5); % Lymphocytes 2.5 % (20.5-51.1); % Monocytes 4.5 % (1.7-9.3); % Neutrophils 92.3 % (42.2-75.2); Absolute Immature Granulocytes 0.1 10^3/uL (0-0.05); Absolute Lymphocytes 0.7 10^3/uL (1.2-3.4); Absolute Monocytes 1.2 10^3/uL (0.1-0.6); Absolute Neutrophils 23.9 10^3/uL (1.4-6.5); Hematocrit 22.6 % (37.0-47.0); Hemoglobin 7.9 g/dL (12.0-16.0); Mean Corpuscular Hgb 33.1 pg (27.0-31.0); Mean Corpuscular Volume 94.6 fL (81.0-99.0); Mean Platelet Volume 9.5 fL (7.4-10.4); Nucleated Red Blood Cells % 0 %; Platelet Count 224 10^3/uL (130-400); Red Blood Cell Count 2.39 10^6/uL (4.20-5.40); Red Cell Dist. Width 17.2 % (11.5-14.5); White Blood Cell Count 25.9 10^3/uL (4.8-10.8)
--- NOTE | 2024-04-01 04:35 | PTCARENOTE ---
Addendum entered by Gallito Horton RN 04/01/24 05:44:
Followed up w/ blood bank for ETA of product. Due to patient condition of [facility], additional screen required. In progress expecting blood within hour.
Original Note:
Maps ranging 62-65, Hgb resulted 7.9 from 9.7.
1 unit PRBC ordered.
[2024-04-01] MEDS: TORADOL 15 MG IV ×3 (05:31→17:45)
[2024-04-01] MEDS: ZOSYN 100 IV ×3 (05:32→17:45)
[2024-04-01] MEDS: TYLENOL 1000 MG PO ×3 (05:32→17:45)
--- NOTE | 2024-04-01 06:58 | W.PN.UPDATE ---
Update Note
Progress Note Update
Received TT from surgeon Dr Hunt regarding am HH of 7.9. He would like 2 units prbc ordered. Reviewing chart,
ICU arabella already ordered one unit prbc. Confirmed with Dr Hunt he would like pt to receive 2 units.
--- NOTE | 2024-04-01 07:15 | PTCARENOTE ---
Handoff assessment. Right anterior chest wall SQ port with PRBC's infusing. Right FA#22g positional and infusing 0.9nss. Weak pedal pulses, + scleral edema with right eye outer sclera/lower lid red. She denies pain, burning, blurred vision or
itchiness. Breath sounds dim bibasilarly. She was encouraged to use the IS at minimum 10x's an hour while awake. She required redirection multiple times to ensure proper use of IS. Hypoactive BSX4. Midline abdominal aquacel dressing with old
shadowing. She is tender around her incision. She was informed that she would need to void by 12nn and to notify RN should she experience any abdominal pressure. She verbalized her understanding. Knee-hi scd's intact. Safe environment maintained.
Will continue supportive care.
[2024-04-01] MEDS: PROTONIX 40 MG PO (08:39)
[2024-04-01] MEDS: DILAUDID 0.25 MG IV (08:40)
[2024-04-01] MEDS: SENOKOT-S 1 TABLET PO (08:40)
--- NOTE | 2024-04-01 08:42 | W.PN.INTV ---
Today's Communication / Plan
Recommendations
Off all vasopressors and remains HDN stable
Up OOB as tolerated
Trend H/H and transfuse to keep Hb >7, platelets >50K
Pain control
Encourage IS use
Follow up pathology from OR case yesterday
IV albumin
Repeat H/H is stable s/p transfusion earlier this morning. She remains hemodynamically stable and is off vasopressors, awake, alert and A&Ox3. Can Filler-Onc agrees with downgrade and patient is stable for transfer out of ICU to telemetry.
Rn Production/Pulmonary service will now sign off. Please reconsult if there are any additional questions/concerns, or if patient's respiratory status deteriorates.
Assessment
-
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 Patient is known to the oncology service with
last visit with Dr. Hunt on 03/10/2024 in which surgical options regarding her high-grade serous carcinoma was discussed. 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
primary. She had started chemotherapy with last chemotherapy given in last week of February. Debulking was reviewed including its risks and benefits. Today she underwent exploratory laparotomy with radical tumor debulking with total abdominal
hysterectomy, bilateral salpingo-� oophorectomy resection of anterior and posterior cul-de-sac, bilateral pelvic lymphadenectomy, infracolic and gastrocolic omentectomy, resection of multiple peritoneal tumor implants, sigmoid colectomy and
resection of supraumbilical anterior abdominal wall subcutaneous tumor. EBL was 250 cc and there were no immediate complications. Unfortunately postoperatively she was hypotensive and hypoxic. She had received 2.5 L of IVF and had periods of
apnea with saturations dropping to the 60s. She was started on vasopressors with Willam-Synephrine and transferred to the ICU for closer monitoring. Rn Production services now consulted for additional management/recommendations.
Chronic conditions HIMS MANAGER: High-grade serous ovarian carcinoma, history of left breast invasive ductal carcinoma (triple positive) s/p lumpectomy/XRT, history of marginal zone lymphoma, hypertension
Impression:
#High-grade serous ovarian carcinoma s/p neoadjuvant chemotherapy s/p ex lap w/ radical tumor debulking + sigmoid colectomy w/ colorectal anastomosis & resection of supraumbilical abd. wall subcutaneous tumor (POD #1)
#Postoperative hypotension requiring vasopressors � likely due to anesthesia with possible translocation of gut bacteria given the extent of tumor debulking - shock state now resolved
#Leukocytosis likely due to transient bacteremia/sepsis
#Acute respiratory failure with hypoxia currently on supplemental oxygen
#Anemia
#Hypokalemia
#History of left breast invasive ductal carcinoma (ER, UT, HER2 positive) s/p lumpectomy/XRT
#History of marginal zone lymphoma
#History of splenectomy
Plan:
- Post-operative management as per gynecology�oncology
- Follow-up pathology from the OR on 03/31
- Given the extent of tumor debulking with resection of her infracolic + gastrocolic omentum and sigmoid colectomy, she is at risk of transient bacteremia with gut abraham
- She is also of increased risk of infection given her history of splenectomy
- Continue Zosyn (started 03/31/2024) and follow up blood culture (collected 03/31 - NGTD)
- Would plan for at least 5-7 days total of Abx
- She has been successfully weaned off of vasopressors
- Keep MAP>65
- IV albumin 25g, 25%to help raise oncotic pressure and try to reach goal albumin of 3 or greater
- Currently on clear liquid diet - ADAT as per monotype keyboard operator-onc surgery
- Stop PPI now that shock state has resolved
- Maintain SpO2 >90-94%
- Aspiration precautions and keep HOB >30-45�
- Trend H/H and transfuse if needed to keep >7 g/dL
- Received 1 U PRBC this AM due to Hb of 7.9 down from 10.2 yesterday morning. Follow-up repeat CBC s/p transfusion
- Keep plt>50k (given post-operative status)
- Pain control
- Replete electrolytes with K>4, Mg>2
- Maintain euglycemia with goal BG 140-180
- prn nebulized bronchodilators - not currently bronchospastic
- Incentive spirometer encouraged 10x per hour for at least 4 hrs a day
- DVT ppx: SCDs for now; defer starting chemical ppx to monotype keyboard operator-oncology given the extent of her surgery; if Hb remains stable in next 24-48 hrs then start HSQ
Repeat H/H is stable s/p transfusion earlier this morning. She remains hemodynamically stable and is off vasopressors, awake, alert and A&Ox3. Can Filler-Onc agrees with downgrade and patient is stable for transfer out of ICU to telemetry.
Rn Production/Pulmonary service will now sign off. Thank you for allowing us to be involved in the care of this patient. Please reconsult if there are any additional questions/concerns, or if patient's respiratory status deteriorates.
Data:
CT chest/abdomen/pelvis with IV contrast 03/29/2024:
1. Several subcutaneous masses are seen within the anterior abdominal wall near the midline in the supraumbilical region, measuring up to 1.9 cm in diameter. These may represent subcutaneous metastases or other subcutaneous masses.
2. Left inguinal hernia, fat-containing. Small soft tissue nodule within the left inguinal hernia measures 1.3 cm in diameter, and may represent a mesenteric lymph node, or changes of prior hernia incarceration.
3. Each ovary measures approximately 3 cm in diameter, which may be enlarged for a postmenopausal female. These correlate with prior imaging if available, and if indicated with pelvic ultrasound.
CXR 03/31/2024: Mild left lower lobe atelectasis versus pneumonia. New.
Total time spent today was 75 minutes for this encounter. Time includes reviewing laboratory test/imaging results, reviewing pertinent medical records, obtaining and reviewing medical history, performing an appropriate exam, ordering medications,
tests and procedures. Time also includes documentation of this encounter, coordinating patient care and communicating with other healthcare professionals. Total time does not include separately billed tests performed on this date of service.
Subjective Dataa
Subjective Data
Date of Service:
Date of Service: April 01, 2024
Chief Complaint: Rn Production Follow Up
Subjective:
Patient was seen and evaluated today at bedside. Hypotensive overnight requiring albumin. Hemoglobin dropped on morning labs today from 10.1 yesterday to 7.9 and 1 unit PRBC was transfused. No active bleeding seen at bedside. When I saw the
patient, BP 105/58, heart rate 84, and saturating 95% on room air. She feels tender in her abdomen but otherwise denies chest pain, SOB, REID, fevers or chills.
Review of Systems
General: Other (Negative unless mentioned above)
Objective Data
Data Reviewed
Vital Signs / I&O / Oxygen:
Vital Signs
Temp Pulse Resp BP Pulse Ox
97.8 F 77 21 120/61 93
04/01/24 09:51 04/01/24 09:51 04/01/24 09:51 04/01/24 09:51 04/01/24 09:51
Intake and Output
03/31/24 04/01/24 04/02/24
06:59 06:59 06:59
Intake Total 3536 / 3611 625 / 625
Output Total 570 / 570
Balance 2966 / 3041 625 / 625
SaO2 93
Nasal Cannula flow liters per 2
minute
Physical Exam
General: Respiratory Distress (negative), Comfortable, Chills (negative) and Sweats (negative)
HEENT: Normocephalic and Anicteric
Cardiovascular: S1-S2 and Peripheral Edema (negative)
Respiratory: Wheeze (negative), Crackles (negative), Rhonchi (negative) and Non-Labored Respirations
GI: Soft, Non Distended, Tender (Epigastrium with no rebound or peritoneal signs) and Normal Bowel Sounds
Neurology: AO x 3 and Tremors (negative)
Skin: Warm, Dry, Cyanosis (negative) and Jaundice (negative)
Labs/Micro/Reports
Lab Data
04/01/24 03:53
04/01/24 03:53
Laboratory Results
03/31/24
14:07
PT 17.4 H
INR 1.45
APTT 30.0
--- NOTE | 2024-04-01 13:00 | PTCARENOTE ---
OOB to commode. Voided 100ml's. 2 assist OOB to the chair. She c/o intermittent shrp pain when she laughed. Intermittent moist productive cough. Expectorating clear phlegm in tissue.
--- NOTE | 2024-04-01 14:01 | W.PN.HOSP.TC ---
Today's Communication/Plan
-
cont abx, f/u cultures
monitor cbc for stability, transfuse as needed
ensure MAP>65
remains off pressors
if hgb remains stable today, most likely can downgrade
pt/ot, pain control
Assessment / Plan
Assessment / Plan
Physical Exam
General: Conversant, AAOx3, No Fever or Chills
HEENT: NormoCephalic, Anicteric, PERRLA, Start Conjunctivae, No Ptosis, Oxygen (2 L) and Other (Dry oral mucosa)
Respiratory: Clear; No Wheezes, Rales or Rhonchi
Cardiac: S1/S2 and Regular Rhythm; No Murmur, Rub, Gallop or Peripheral Edema
Breast: Deferred by me
GI: Soft, Normal Bowel Sounds, Tender (Generalized) and Other (Longitudinal Aquacel dressing in place no surrounding drainage or erythema)
Rectal: Deferred by Provider
Genito-urinary: Oh
Musculoskeletal: No Clubbing, No Cyanosis and No Edema
Skin: Warm, Dry and Other (Port right upper chest wall); No Rash
Neuro: No Motor Deficits, Cranial Nerves Intact, No Sensory Deficits, Sedated and Other (Very drowsy falls asleep during exam has episodes of hypoxia dropping O2 to 65% is requiring nasal cannula oxygen 2 L); No Slurred Speech, Facial Droop or
Tremors
Psych: Calm
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
#S/p hysterectomy with bilateral salpingo-oophorectomy, pelvic omentum removal, radical tumor debulking, colorectal anastomosis, anterior abdominal wall tumor implant by Dr. Hunt 03/31
#Patient on chemotherapy Taxol and carboplatin last infusion was 3 weeks ago she reports she has 3 infusions left follows with in [place]
-ADAT-pain control
-Fluids
-Airline Security Representative/onc recs
#acute blood loss anemia
- most likely post op complication
--2u prbc given 04/01
--transfuse as necessary
-hgb goal >7
-trend cbc along with MAPs; CBC 2 PM today
#Shock, undifferentiated; Possible septic v hypovolemic (hemorrhagic)
-off pressors 03/31 evening
-maintain map >65
� See plan above for transfusions, anemia
� Continue to antibiotics
� Follow-up cultures
#Possible pneumonia
� Continue to antibiotics
#Leukocytosis
� Multiple reactive in setting of surgery versus septic
� Continue to monitor antibiotics, resuscitation
#Hx HTN�benign
-Hold amlodipine 5 mg daily, metoprolol succinate 12.5 mg at bedtime, valsartan 160 mg daily due to shock
#Acute hypoxic resp insufficiency with episodes of apnea secondary to surgical anesthesia and pain control with opiates
Pulse ox will drop as low as 65% is 97% on 2 L nasal cannula
-cont abx for pneumonia empirically
-will need sleep study outpt
-Supportive O2 nasal cannula
-Afebrile, negative cough
#Hypokalemia possible medication versus malnutrition
monitor and replete
#Invasive ductal carcinoma grade 2 ER/OK positive HER2 positive
# HX left lumpectomy and sentinel lymph node biopsies in May 2018. She was BRCA low risk. She also underwent radiation to this left breast that was completed in August 2018
-Completed 5-year Arimidex September 2018
# hx Marginal zone lymphoma
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 Holloway for her lymphoma
DVT prophylaxis
scds - holding hsq due to possible blood loss anemia
Full code
Total time spent on today's encounter was 51 minutes which included time spent in counseling the patient/family regarding diagnosis and treatment plan as listed above, goals of care, and symptom management. Case was discussed with nursing staff,
specialists, and care coordinators/case management. All labs and imaging personally reviewed by me. Remainder the time spent in detailed review of previous records, lab data, imaging, and other medical provider documentation.
Anticipated Discharge: 24 - 48 hours
Subjective/Interval History
-
Date of Service: April 01, 2024
Transfused 2 units overnight into this morning, hemodynamically stable, off pressors since yesterday night. Mentating well.
Objective Data
-
Labs:
Laboratory Results
04/01/24 04/01/24
03:53 14:00
WBC 25.9 H Pending
Hgb 7.9 L Pending
Hct 22.6 L Pending
Plt Count 224 Pending
Sodium 141
Potassium 4.3 D
Chloride 109 H
Carbon Dioxide 22
BUN 12
Creatinine 0.5 L
Glucose 137 H
Calcium 8.3 L
Vital Signs:
Vital Signs
Temp Pulse Resp BP Pulse Ox
98.3 F 84 18 109/74 94
04/01/24 12:19 04/01/24 12:45 04/01/24 12:45 04/01/24 12:40 04/01/24 13:22
I&O
03/31/24 04/01/24 04/02/24
06:59 06:59 06:59
Intake Total 3536 / 3611 995 / 995
Output Total 570 / 570 100 / 100
Balance 2966 / 3041 895 / 895
Review of Systems
-
History Source: Patient
All other systems: Not reviewed unless documented
Data Reviewed
-
Diagnostic Radiology: Image personally visualized and interpreted and Report Reviewed by me
CT Scan: Image personally visualized and interpreted and Report Reviewed by me
Labs: Labs Reviewed by me
[2024-04-01] MEDS: FLEXBUMIN IV (14:42)
--- NOTE | 2024-04-01 14:43 | W.PN.GYNONC ---
Addendum entered and electronically signed by Rene Hunt MD 04/01/24 20:23:
I contacted her medical oncologist Dr Ian Ash at [place] and note that she has had a leukocytosis since starting chemotherapy and getting G CSF.
She has been getting rolevedon the biosimilar to neulasta which tends to cause a longer leukocytosis.
Her wbc elevation is probably nothing to do with any inflammation or infection.
Rene Hunt
Original Note:
Today's Communication
-
Clear liquid diet
Status post 2 units of blood transfusion
Awaiting results of CBC this afternoon
Likely plan to transition to MedSurg unit this evening
Voiding trial in progress
Impression / Plan
-
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
removal, radical tumor debulking, colorectal anastomosis, anterior abdominal wall tumor implant
#acute blood loss anemia
-She has anemia associated with recent chemotherapy as well as intraoperative blood loss
--2u prbc given 04/01
CBC 2 PM today
#Shock, hypovolemic
-off pressors 03/31 evening
#Leukocytosis
� She had leukocytosis on her labs prior to surgery and its likely due to growth factor administration after last cycle of chemotherapy.
� Continue to monitor antibiotics, if her blood pressures remain stable, I recommend discontinuation as it may not be necessary
# Essential HTN
-Once blood pressure is normalized I plan to resume
amlodipine 5 mg daily,
metoprolol succinate 12.5 mg at bedtime,
valsartan 160 mg daily due to shock
#Acute hypoxic resp insufficiency
Patient has a large vertical abdominal incision, encouraged incentive spirometry. She is off oxygen this morning
#Hypokalemia , likely secondary to mechanical bowel preparation, resolved
#Invasive ductal carcinoma grade 2 ER/MD positive HER2 positive
# hx Marginal zone lymphoma
#DVT prophylaxis
-Please resume Lovenox 40 mg subcutaneous daily
Continue sequential compression devices below the knee
Subjective / Interval History
-
Postop day 1 status post cytoreductive surgery for advanced ovarian cancer
I explained to the patient the details of operative findings and procedures performed, she is appreciated of of the maximal effort.
She was admitted to the ICU for persistent hypotension which was likely due to anemia. She has received 2 units of blood transfusion earlier today
Oh catheter has been removed but she has not voided
Objective Data
-
Lab Results:
04/01/24 03:53
Physical Exam
Vital Signs / I&O
Vitals
Temp Pulse Resp BP Pulse Ox
98.3 F 84 18 109/74 94
04/01/24 12:19 04/01/24 12:45 04/01/24 12:45 04/01/24 12:40 04/01/24 13:22
I&O
03/30/24 03/31/24 04/01/24 04/02/24
06:59 06:59 06:59 06:59
Intake Total 3536 / 3611 995 / 995
Output Total 570 / 570 100 / 100
Balance 2966 / 3041 895 / 895
Physical Exam
General: Well Developed and No Apparent Distress
Respiratory: Clear and Non Labored Respirations
Cardiac: S1/S2 and Regular Rhythm
GI: Soft, Normal Bowel Sounds and Other (Midline incision is intact, dressing left in place)
Skin: Warm
Neuro: Awake, Alert and AO x 3
Psych: Calm and Intact Judgement
Data Reviewed
-
Lab Data: Labs Reviewed and Other (Preoperatively on March 22 she had leukocytosis 27,000 likely due to growth factor after last cycle of chemotherapy)
[2024-04-01 14:47] LABS: Hematocrit 31.5 % (37.0-47.0); Hemoglobin 11.1 g/dL (12.0-16.0); Mean Corp Hgb Conc. 35.2 g/dL (33.0-37.0); Mean Corpuscular Hgb 30.7 pg (27.0-31.0); Mean Corpuscular Volume 87.3 fL (81.0-99.0); Mean Platelet Volume 9.8 fL (7.4-10.4); Platelet Count 201 10^3/uL (130-400); Red Blood Cell Count 3.61 10^6/uL (4.20-5.40); Red Cell Dist. Width 21.5 % (11.5-14.5); White Blood Cell Count 24.7 10^3/uL (4.8-10.8)
--- NOTE | 2024-04-01 15:21 | PTCARENOTE ---
Ambulated to the BR from bedside chair with minimal assistance, and minimal discomfort. Gait steady.
--- NOTE | 2024-04-01 18:16 | CM ---
Addendum entered by Pauline Avendano 04/01/24 18:30:
Correction: POD 1
Addendum entered by Pauline Avendano 04/01/24 18:28:
CXR showed LLL atelectasis vs. PNA.
Original Note:
CM reviewed chart. CM introduced self and role. Patient's daughter and son in law also in room. Patient has an active PCP. She uses [facility] in [place]. She lives at home with and has her son and daughter and their spouses for support. She is
usually independent. She owns a walker. She usually drives. She denied any +SDOHs. She is retired. 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
Patient is POD #2 of an exploratory lap. with a total hysterectomy, b/l oophorectomy, colectomy and radical tumor debulking. She was diagnosed with ovarian CA in December 2023. Hbg was 7.9. 2 units of PRBCs were ordered.
--- NOTE | 2024-04-01 22:11 | PTCARENOTE ---
Patient meets Tele D/C protocol parameters. Discussed w/ Dr. Rose clinical status of patient, past hx, and protocol guidelines. He is in ok with D/C of tele orders. Protocol followed per verbal with Dr. Rose.
[2024-04-02] MEDS: TORADOL 15 MG IV ×3 (00:16→12:28)
[2024-04-02] MEDS: TYLENOL 1000 MG PO ×4 (00:16→18:46)
[2024-04-02] MEDS: ZOSYN 100 IV ×3 (00:17→12:28)
[2024-04-02] MEDS: COMPAZINE 10 MG IV (04:27)
[2024-04-02 05:25] LABS: Hematocrit 28.9 % (37.0-47.0); Hemoglobin 10.3 g/dL (12.0-16.0); Mean Corp Hgb Conc. 35.6 g/dL (33.0-37.0); Mean Corpuscular Hgb 30.7 pg (27.0-31.0); Mean Corpuscular Volume 86.3 fL (81.0-99.0); Mean Platelet Volume 9.6 fL (7.4-10.4); Platelet Count 185 10^3/uL (130-400); Red Blood Cell Count 3.35 10^6/uL (4.20-5.40); Red Cell Dist. Width 21.5 % (11.5-14.5)
[2024-04-02 06:00] VITALS: BMI 24.9
[2024-04-02 06:02] LABS: ALT (SGPT) 11 U/L (0-35); AST (SGOT) 31 U/L (14-36); Albumin 3.3 g/dl (3.5-5.0); Alkaline Phosphatase 55 U/L (38-126); Blood Urea Nitrogen 12 mg/dl (7-17); Calcium 8.6 mg/dl (8.4-10.2); Carbon Dioxide 23 mmol/L (22-30); Chloride 106 mmol/L (98-107); Estimated Creatinine Clearance 62 ml/min; Glucose 96 mg/dl (70-99); Phosphorus 2.2 mg/dl (2.5-4.5); Potassium 3.9 mmol/L (3.5-5.1); Sodium 138 mmol/L (135-145); Total Bilirubin 0.9 mg/dl (0.2-1.3); Total Protein 5.3 g/dl (6.3-8.2); eGFR > 60.00
[2024-04-02 06:27] VITALS: BP 133/66
[2024-04-02 08:22] VITALS: BP 127/86
--- NOTE | 2024-04-02 10:53 | TRANSFER ---
Report called to [facility] for room 2101. Julia the A was also notified of her transfer.
[2024-04-02 11:15] VITALS: BP 147/81
[2024-04-02 12:10] VITALS: BP 148/88; PULSE 97; O2SAT 96
[2024-04-02] MEDS: FLUSH (NSS) 2 FLUSH IV (12:29)
[2024-04-02] MEDS: FLUSH (NSS) 1 FLUSH IV ×2 (13:39→14:38)
--- NOTE | 2024-04-02 13:51 | W.PN.HOSP.TC ---
Today's Communication/Plan
-
abx, f/u cultures
monitor cbc, transfuse as necessary for hgB >7
may be able to restart antihypertensives starting tomorrow
DVT ppx as per primary once hgb appears to be stable;
Assessment / Plan
Assessment / Plan
Physical Exam
General: Conversant, AAOx3, No Fever or Chills
HEENT: NormoCephalic, Anicteric, PERRLA, [place] Conjunctivae, No Ptosis, Oxygen (2 L) and Other (Dry oral mucosa)
Respiratory: Clear; No Wheezes, Rales or Rhonchi
Cardiac: S1/S2 and Regular Rhythm; No Murmur, Rub, Gallop or Peripheral Edema
Breast: Deferred by me
GI: Soft, Normal Bowel Sounds, Tender (Generalized) and Other (Longitudinal Aquacel dressing in place no surrounding drainage or erythema)
Rectal: Deferred by Provider
Genito-urinary: Oh
Musculoskeletal: No Clubbing, No Cyanosis and No Edema
Skin: Warm, Dry and Other (Port right upper chest wall); No Rash
Neuro: No Motor Deficits, Cranial Nerves Intact, No Sensory Deficits, Sedated and Other (Very drowsy falls asleep during exam has episodes of hypoxia dropping O2 to 65% is requiring nasal cannula oxygen 2 L); No Slurred Speech, Facial Droop or
Tremors
Psych: Calm
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
#S/p hysterectomy with bilateral salpingo-oophorectomy, pelvic omentum removal, radical tumor debulking, colorectal anastomosis, anterior abdominal wall tumor implant by Dr. Hunt 03/31
#Patient on chemotherapy Taxol and carboplatin last infusion was 3 weeks ago she reports she has 3 infusions left follows with in [place]
-ADAT
-pain control
-Splunk Architect/onc recs
#acute blood loss anemia
- most likely post op complication
--2u prbc given 04/01
--transfuse as necessary
-hgb goal >7
-trend cbc along with MAPs; CBC remained stable
#Shock, undifferentiated; Possible septic v hypovolemic (hemorrhagic)
-off pressors 03/31 evening
-maintain map >65
� See plan above for transfusions, anemia
� Continue to antibiotics
� Follow-up cultures
#Possible pneumonia
� Continue antibiotics
#Leukocytosis
�Receving rolevedon which is biosimilar to neulasta which tends to cause a longer leukocytosis
� Continue to monitor antibiotics, resuscitation, fever curve
#Hx HTN�benign
-Hold amlodipine 5 mg daily, metoprolol succinate 12.5 mg at bedtime, valsartan 160 mg daily due to shock
-consider restarting BP meds slowly tomorrow if BPs increasing
#Acute hypoxic resp insufficiency with episodes of apnea secondary to surgical anesthesia and pain control with opiates - improved
Pulse ox will drop as low as 65% is 97% on 2 L nasal cannula
-cont abx for pneumonia empirically
-will need sleep study outpt
-Supportive O2 nasal cannula
-Afebrile, negative cough
#Hypokalemia possible medication versus malnutrition
#Hypophosphatemia
monitor and replete
#Invasive ductal carcinoma grade 2 ER/IL positive HER2 positive
# HX left lumpectomy and sentinel lymph node biopsies in May 2018. She was BRCA low risk. She also underwent radiation to this left breast that was completed in August 2018
-Completed 5-year Arimidex September 2018
# hx Marginal zone lymphoma
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 Holloway for her lymphoma
DVT prophylaxis
scds -can resume dvt ppx once cbc remains stable and as per Splunk Architect/Onc
Full code
Anticipated Discharge: 24 - 48 hours
Subjective/Interval History
-
Date of Service: April 02, 2024
Hemodynamically stable
Objective Data
-
Labs:
Laboratory Results
04/02/24
05:12
WBC 18.0 H
Hgb 10.3 L
Hct 28.9 L
Plt Count 185
Sodium 138
Potassium 3.9
Chloride 106
Carbon Dioxide 23
BUN 12
Creatinine 0.6
Glucose 96
Calcium 8.6
Total Bilirubin 0.9
AST 31
ALT 11
Alkaline Phosphatase 55
Vital Signs:
Vital Signs
Temp Pulse Resp BP Pulse Ox
98.2 F 95 16 147/81 97
04/02/24 11:15 04/02/24 11:15 04/02/24 11:15 04/02/24 11:15 04/02/24 11:15
I&O
04/01/24 04/02/24 04/03/24
06:59 06:59 06:59
Intake Total 3536 / 3611 2235 / 2235 120 / 120
Output Total 570 / 570 2150 / 2150 500 / 500
Balance 2966 / 3041 85 / 85 -380 / -380
Review of Systems
-
History Source: Patient
All other systems: Not reviewed unless documented
Data Reviewed
-
Diagnostic Radiology: Image personally visualized and interpreted and Report Reviewed by me
CT Scan: Image personally visualized and interpreted and Report Reviewed by me
Labs: Labs Reviewed by me
[2024-04-02] MEDS: SODIUM PHOSPHATE 255 MEQ IV (14:23)
--- NOTE | 2024-04-02 14:43 | W.PN.GYNONC ---
Today's Communication
-
I recommended increasing ambulation
DC IV fluids
Tylenol and ibuprofen [id number]
Encourage patient to chew gum, drink tea and coffee, and increase ambulation
Continue to monitor her incision for bleeding
Resume prophylactic Lovenox
Impression / Plan
-
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
removal, radical tumor debulking, colorectal anastomosis, anterior abdominal wall tumor implant
Advancing diet to full liquids
Check C-reactive protein tomorrow
Awaiting return of bowel function
#acute blood loss anemia
-She has anemia associated with recent chemotherapy as well as intraoperative blood loss
--2u prbc given 04/01
Hemoglobin is stable at 10
#Shock, hypovolemic
-off pressors 03/31 evening
#Leukocytosis
� She had leukocytosis on her labs prior to surgery and its likely due to growth factor administration after last cycle of chemotherapy.
She remains afebrile, I discontinued IV antibiotics
# Essential HTN
-Once blood pressure is normalized I plan to resume
amlodipine 5 mg daily,
metoprolol succinate 12.5 mg at bedtime,
valsartan 160 mg daily due to shock
#Acute hypoxic resp insufficiency
Patient has a large vertical abdominal incision, encouraged incentive spirometry.
She is off oxygen
#Hypokalemia , likely secondary to mechanical bowel preparation, resolved
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
# hx Marginal zone lymphoma
#DVT prophylaxis
-Will resume Lovenox 40 mg subcutaneous daily
Continue sequential compression devices below the knee
Subjective / Interval History
-
POD2
She has been transferred out of the intensive care unit, sitting in a chair, she had a wave of nausea earlier today but feels much better and has tolerated clear liquids without difficulty. She is not passing flatus
Pain is under excellent control
Her sister is visiting, again we discussed the extensive procedures performed
Objective Data
-
Lab Results:
04/02/24 05:12
04/02/24 05:12
Physical Exam
Vital Signs / I&O
Vitals
Temp Pulse Resp BP Pulse Ox
98.2 F 95 16 147/81 97
04/02/24 11:15 04/02/24 11:15 04/02/24 11:15 04/02/24 11:15 04/02/24 11:15
I&O
03/31/24 04/01/24 04/02/24 04/03/24
06:59 06:59 06:59 06:59
Intake Total 3536 / 3611 2235 / 2235 120 / 120
Output Total 570 / 570 2150 / 2150 500 / 500
Balance 2966 / 3041 85 / 85 -380 / -380
Physical Exam
General: Well Developed and No Apparent Distress
Respiratory: Clear and Non Labored Respirations
Cardiac: S1/S2 and Regular Rhythm
GI: Soft, Non Tender, Non Distended, Normal Bowel Sounds and Other (Initial dressing was removed, there is evidence of old blood and some clots specially in the upper abdomen. There is no obvious active evidence of bleeding. Dressing was
reapplied.)
Skin: Warm and Dry
Neuro: Awake, Alert and Oriented
Psych: Calm and Intact Judgement
Data Reviewed
-
Lab Data: Labs Reviewed
[2024-04-02 15:00] VITALS: BP 145/83
[2024-04-02] MEDS: MOTRIN PO (15:59)
[2024-04-02] MEDS: LOVENOX 40 MG SC (18:46)
[2024-04-02] MEDS: MOTRIN 400 MG PO (20:12)
[2024-04-02 23:12] VITALS: BP 124/73
[2024-04-03] MEDS: TYLENOL 1000 MG PO ×3 (00:02→18:18)
[2024-04-03] MEDS: ZOFRAN 4 MG IV ×3 (00:36→22:41)
[2024-04-03] MEDS: MOTRIN 400 MG PO ×2 (03:37→20:08)
[2024-04-03 05:01] LABS: % Basophils 0.2 % (0-2); % Eosinophils 0.1 % (0-6); % Immature Granulocytes 0.2 % (0-0.5); % Monocytes 7.6 % (1.7-9.3); % Neutrophils 85.9 % (42.2-75.2); Absolute Lymphocytes 0.7 10^3/uL (1.2-3.4); Absolute Monocytes 0.9 10^3/uL (0.1-0.6); Absolute Neutrophils 10.4 10^3/uL (1.4-6.5); Hematocrit 31.5 % (37.0-47.0); Hemoglobin 11.3 g/dL (12.0-16.0); Mean Corp Hgb Conc. 35.9 g/dL (33.0-37.0); Mean Corpuscular Hgb 31.5 pg (27.0-31.0); Mean Corpuscular Volume 87.7 fL (81.0-99.0); Mean Platelet Volume 10.2 fL (7.4-10.4); Nucleated Red Blood Cells % 0 %; Platelet Count 207 10^3/uL (130-400); Red Blood Cell Count 3.59 10^6/uL (4.20-5.40); Red Cell Dist. Width 20.2 % (11.5-14.5); White Blood Cell Count 12.1 10^3/uL (4.8-10.8)
[2024-04-03 05:30] VITALS: BMI 23.0
[2024-04-03 05:30] LABS: ALT (SGPT) 12 U/L (0-35); AST (SGOT) 32 U/L (14-36); Albumin 3.3 g/dl (3.5-5.0); Alkaline Phosphatase 73 U/L (38-126); Blood Urea Nitrogen 12 mg/dl (7-17); Calcium 8.5 mg/dl (8.4-10.2); Carbon Dioxide 24 mmol/L (22-30); Chloride 104 mmol/L (98-107); Estimated Creatinine Clearance 63 ml/min; Glucose 95 mg/dl (70-99); Potassium 3.4 mmol/L (3.5-5.1); Sodium 139 mmol/L (135-145); Total Protein 5.4 g/dl (6.3-8.2); eGFR > 60.00
--- NOTE | 2024-04-03 06:33 | W.PN.GYNONC ---
Today's Communication
-
full liquids
resume htn meds
Impression / Plan
-
S/p hysterectomy with bilateral salpingo-oophorectomy, pelvic omentum removal, radical tumor debulking, colorectal anastomosis, anterior abdominal wall tumor implant
Advancing diet to full liquids
s/p 2u prbc given 04/01. hgb 11 today
Leukocytosis. wbc declining now 12K
she has Essential HTN, restart amlodipine 5 mg daily, and metoprolol succinate 12.5 mg at bedtime,
increase ambulation, PT eval
DVT prophylaxis, Lovenox 40 mg subcutaneous daily
Subjective / Interval History
-
POD3
looks well, denies pain. slept well
Objective Data
-
Lab Results:
04/03/24 04:19
04/03/24 04:19
Physical Exam
Vital Signs / I&O
Vitals
Temp Pulse Resp BP Pulse Ox
99.0 F 97 18 124/73 97
04/02/24 23:12 04/02/24 23:12 04/02/24 23:12 04/02/24 23:12 04/02/24 23:12
I&O
03/31/24 04/01/24 04/02/24 04/03/24
06:59 06:59 06:59 06:59
Intake Total 3536 / 3611 2235 / 2235 1620 / 1620
Output Total 570 / 570 2150 / 2150 500 / 500
Balance 2966 / 3041 85 / 85 1120 / 1120
Physical Exam
General: No Apparent Distress
Respiratory: Clear and Non Labored Respirations
Cardiac: S1/S2 and Regular Rhythm
GI: Soft, Non Distended and Normal Bowel Sounds
Psych: Calm and Intact Judgement
Data Reviewed
-
Lab Data: Labs Reviewed
[2024-04-03 07:05] VITALS: BP 149/93
--- NOTE | 2024-04-03 08:11 | W.PN.HOSP.TC ---
Today's Communication/Plan
-
x-ray
pain control, encourage ambulation
anti-nausea meds PRN
IV K
decrease metop to home dosing 12.5 qhs
start mucinex for congestion
Assessment / Plan
Assessment / Plan
Physical Exam
General: Conversant, AAOx3, No Fever or Chills
HEENT: NormoCephalic, Anicteric, PERRLA, [place] Conjunctivae, No Ptosis, Oxygen (2 L) and Other (Dry oral mucosa)
Respiratory: Clear; No Wheezes, Rales or Rhonchi
Cardiac: S1/S2 and Regular Rhythm; No Murmur, Rub, Gallop or Peripheral Edema
Breast: Deferred by me
GI: Soft, Normal Bowel Sounds, Tender (Generalized) and Other (Longitudinal Aquacel dressing in place no surrounding drainage or erythema)
Rectal: Deferred by Provider
Genito-urinary: Oh
Musculoskeletal: No Clubbing, No Cyanosis and No Edema
Skin: Warm, Dry and Other (Port right upper chest wall); No Rash
Neuro: No Motor Deficits, Cranial Nerves Intact, No Sensory Deficits, Sedated and Other (Very drowsy falls asleep during exam has episodes of hypoxia dropping O2 to 65% is requiring nasal cannula oxygen 2 L); No Slurred Speech, Facial Droop or
Tremors
Psych: Calm
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
#S/p hysterectomy with bilateral salpingo-oophorectomy, pelvic omentum removal, radical tumor debulking, colorectal anastomosis, anterior abdominal wall tumor implant by Dr. Hunt 03/31
#Patient on chemotherapy Taxol and carboplatin last infusion was 3 weeks ago she reports she has 3 infusions left follows with in [place]
-plan per Ecommerce Analyst/Onc
-appreciate GS
-nauseated this AM (04/03) - ordering x-ray
-pain control
-worked with PT/OT - home PT on DC
#acute blood loss anemia
- most likely post op complication
--2u prbc given 04/01
- Hg stable at 11.3 today
#Shock, undifferentiated; suspect response to anesthesia, concern for possible translocation of gut bacteria
#Possible pneumonia versus atelectasis on CXR
-off pressors 03/31 evening
-IV Zosyn d/c'd on 04/02
-BP stable, now mildly hypertensive overnight
#Leukocytosis
�Receving rolevedon which is biosimilar to neulasta which tends to cause a longer leukocytosis
-WBC improving this AM
#Hx HTN�benign
-resume amlodipine 5 mg daily, metoprolol succinate 12.5 mg at bedtime,
-continue to hold valsartan 160 mg dailyfor now
#Acute hypoxic resp insufficiency with episodes of apnea secondary to surgical anesthesia and pain control with opiates - improved
Pulse ox will drop as low as 65% is 97% on 2 L nasal cannula
-will need sleep study outpt
-Supportive O2 nasal cannula
-Afebrile, negative cough
#Hypokalemia possible medication versus malnutrition
#Hypophosphatemia
monitor and replete
#Invasive ductal carcinoma grade 2 ER/RI positive HER2 positive
# HX left lumpectomy and sentinel lymph node biopsies in May 2018. She was BRCA low risk. She also underwent radiation to this left breast that was completed in August 2018
-Completed 5-year Arimidex September 2018
# hx Marginal zone lymphoma
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 Holloway for her lymphoma
DVT prophylaxis
lovenox subQ resumed 04/02
Full code
Anticipated Discharge: 24 - 48 hours
Subjective/Interval History
-
Date of Service: April 03, 2024
feeling a little nauseated this morning
feels mucous stuck in throat
Objective Data
-
Labs:
Laboratory Results
04/03/24
04:19
WBC 12.1 H
Hgb 11.3 L
Hct 31.5 L
Plt Count 207
Sodium 139
Potassium 3.4 L
Chloride 104
Carbon Dioxide 24
BUN 12
Creatinine 0.6
Glucose 95
Calcium 8.5
Total Bilirubin 1.0
AST 32
ALT 12
Alkaline Phosphatase 73
Vital Signs:
Vital Signs
Temp Pulse Resp BP Pulse Ox
99.0 F 97 18 124/73 97
04/02/24 23:12 04/02/24 23:12 04/02/24 23:12 04/02/24 23:12 04/02/24 23:12
I&O
04/02/24 04/03/24 04/04/24
06:59 06:59 06:59
Intake Total 2235 / 2235 1620 / 1620
Output Total 2150 / 2150 500 / 500
Balance 85 / 85 1120 / 1120
Review of Systems
-
History Source: Patient
All other systems: Reviewed and negative
Data Reviewed
-
Diagnostic Radiology: Report Reviewed by me
Labs: Labs Reviewed by me
[2024-04-03] MEDS: FLUSH (NSS) 2 FLUSH IV (08:27)
[2024-04-03] MEDS: FLUSH (NSS) 1 FLUSH IV ×3 (08:48→16:46)
[2024-04-03] MEDS: KCL 260 MEQ IV (08:48)
[2024-04-03] MEDS: MUCINEX PO ×2 (08:57→09:08)
[2024-04-03] MEDS: MOTRIN PO ×3 (09:04→15:00)
--- NOTE | 2024-04-03 09:28 | W.PN.CRS1 ---
Addendum entered and electronically signed by Rinku Estrada MD 04/03/24 16:11:
Reviewed AXR, significant distention seen in loops of bowel; would recommend keeping NPO until abdominal distention improves or having bowel function
Original Note:
Today's Communication / Plan
-
abdominal xrays
npo
Assessment/Plan
-
POD#3
-Given nausea, will order abdominal xrays
-NPO for now
-Continue pain medication/zofran
-On Lovenox for DVT prophyalxis
Subjective Data
Procedure
03/31 - Exploratory laparotomy, radical tumor debulking including total abdominal hysterectomy, bilateral salpingo-oophorectomy resection of anterior and posterior cul-de-sac, bilateral pelvic lymphadenectomy, infracolic and gastrocolic omentectomy,
resection of multiple peritoneal tumor implants including cecal implant and the right round ligament implant
Sigmoid colectomy with low colorectal anastomosis, mobilization of splenic flexure, rigid sigmoidoscopy
Resection of supraumbilical anterior abdominal wall subcutaneous tumor
Subjective Data
Date of Service: April 03, 2024
Patient states she feels more bloated. She is nauseous. She has no appetite. She has been coughing mucus and believes her nausea is due to that.
Objective Data
-
Vital Signs
Temp Pulse Resp BP Pulse Ox
98.4 F 107 16 149/93 96
04/03/24 07:05 04/03/24 07:05 04/03/24 07:05 04/03/24 07:05 04/03/24 07:05
Intake & Output
04/02/24 04/03/24 04/04/24
06:59 06:59 06:59
Intake Total 2235 / 2235 1620 / 1620
Output Total 2150 / 2150 500 / 500
Balance 85 / 85 1120 / 1120
Intake:
Oral fluids 1360 / 1360 1620 / 1620
IV fluids (Total) 75 / 75
Nss 1,000 ml @ 75 mls/hr IV . 75 / 75
[id number] AMANDA Rx#:[id number]
IV piggybacks 300 / 300
Blood Product Amount Infused ( 500 / 500
mL)
Packed Rbc Leukoreduced Unit 250 / 250
[id number]
Packed Rbc Leukoreduced Unit 250 / 250
[id number]
Output:
Urine, Voided 2150 / 2150 500 / 500
Other:
Number of approximated SMALL 1
amounts of urine
Number of approximated MODERATE 2
amounts of urine
Number of approximated LARGE 2
amounts of urine
Lab Results
04/03/24 04:19
04/03/24 04:19
Physical Exam
-
General: No Acute Distress and AOx3
Abdomen: Soft, Distended (mild) and Non Tender
Skin: Warm and Dry
[2024-04-03] MEDS: TYLENOL PO (12:00)
[2024-04-03 15:05] VITALS: BP 143/86
--- NOTE | 2024-04-03 15:27 | CM ---
Case management following for discharge planning
Chart reviewed
POD#3
C/O nausea - NPO, for abd xrays today
Pain management/antiemetics prn
PT/OT recs - HH - will discuss with pt
Plan - anticipate home with VN when medically stable
[2024-04-03] MEDS: NSS 1000 IV (16:46)
--- NOTE | 2024-04-03 17:07 | PTCARENOTE ---
Addendum entered by Majo Reynoso RN 04/03/24 18:36:
dressing to abdomen saturated w/red blood dripping down side. Dr Thurston notified, dressing changed at this time and order received for CBC stat. VAT nurse to draw. will observe.
Original Note:
at 1615, pt ambulating in hallway with daughter. midline abdominal dressing saturated at lower aspect-leaking on sides and down legs. pt also incontinent of moderate amount of loose brown stool in hallway. pt assisted to bathroom-assisted with
hygiene. Dr Thurston notified and new order received to remove surgical dressing and place 4 x4's, ABD pads and paper tape to midline incision. pt assisted to bathroom againa and had large loose brown stool in toilet. denies nausea. IVF started
via Right SC port. will observe.
[2024-04-03] MEDS: LOVENOX SC (18:18)
[2024-04-03 18:53] LABS: % Basophils 0.2 % (0-2); % Eosinophils 0.1 % (0-6); % Immature Granulocytes 0.3 % (0-0.5); % Lymphocytes 5.9 % (20.5-51.1); % Monocytes 8.9 % (1.7-9.3); % Neutrophils 84.6 % (42.2-75.2); Absolute Immature Granulocytes 0.1 10^3/uL (0-0.05); Absolute Monocytes 1.5 10^3/uL (0.1-0.6); Absolute Neutrophils 13.8 10^3/uL (1.4-6.5); Hematocrit 32.9 % (37.0-47.0); Hemoglobin 11.9 g/dL (12.0-16.0); Mean Corp Hgb Conc. 36.2 g/dL (33.0-37.0); Mean Corpuscular Hgb 32.2 pg (27.0-31.0); Mean Corpuscular Volume 88.9 fL (81.0-99.0); Nucleated Red Blood Cells % 0 %; Platelet Count 224 10^3/uL (130-400); Red Cell Dist. Width 19.9 % (11.5-14.5); White Blood Cell Count 16.4 10^3/uL (4.8-10.8)
[2024-04-03] MEDS: MUCINEX 600 MG PO (20:08)
[2024-04-03 21:22] LABS: Hepatitis C Antibody Negative (Negative)
[2024-04-03 22:39] VITALS: BP 143/74
[2024-04-03] MEDS: TOPROL XL 12.5 MG PO (22:40)
--- NOTE | 2024-04-03 22:45 | PTCARENOTE ---
At 2245 Pt vomited green bile after taking Metoprolol HS. Pt given Zofran. VSS. Pt had ct of abd which showed possible early bowel obstuction. FILTRATION SUPERVISOR notified. FILTRATION SUPERVISOR changed PO Tylenol to Ofirmev and added Lopressor iv PRN.
--- NOTE | 2024-04-03 23:48 | W.PN.UPDATE ---
Update Note
Progress Note Update
pt vomited after taking HS metoprolol. zofran given.
pt had ct abd at start of shift- shown poss early bowel obstruction.
RN also reports pt had issues with incisional bleeding today. Will hold lovenox and motrin.
Will change tylenol po ATC to ofirmev.
will add lopressor iv prn as well.
[2024-04-04] MEDS: OFIRMEV 100 IV ×4 (00:30→18:25)
[2024-04-04 04:55] VITALS: BP 142/71
[2024-04-04 05:44] LABS: Hematocrit 28.8 % (37.0-47.0); Hemoglobin 10.1 g/dL (12.0-16.0); Mean Corp Hgb Conc. 35.1 g/dL (33.0-37.0); Mean Corpuscular Hgb 31.8 pg (27.0-31.0); Mean Corpuscular Volume 90.6 fL (81.0-99.0); Mean Platelet Volume 10.3 fL (7.4-10.4); Platelet Count 209 10^3/uL (130-400); Red Blood Cell Count 3.18 10^6/uL (4.20-5.40); Red Cell Dist. Width 19.8 % (11.5-14.5); White Blood Cell Count 13.6 10^3/uL (4.8-10.8)
[2024-04-04 05:57] VITALS: BMI 23.5
[2024-04-04 06:15] LABS: ALT (SGPT) 14 U/L (0-35); AST (SGOT) 34 U/L (14-36); Albumin 2.9 g/dl (3.5-5.0); Alkaline Phosphatase 72 U/L (38-126); Blood Urea Nitrogen 14 mg/dl (7-17); Calcium 8.1 mg/dl (8.4-10.2); Carbon Dioxide 20 mmol/L (22-30); Chloride 107 mmol/L (98-107); Estimated Creatinine Clearance 56 ml/min; Glucose 81 mg/dl (70-99); Potassium 3.8 mmol/L (3.5-5.1); Sodium 140 mmol/L (135-145); Total Bilirubin 0.9 mg/dl (0.2-1.3); eGFR > 60.00
[2024-04-04] MEDS: NSS 1000 IV ×2 (07:17→21:54)
[2024-04-04 07:45] VITALS: BP 121/57
[2024-04-04] MEDS: NORVASC PO (08:33)
[2024-04-04] MEDS: MUCINEX PO (08:33)
--- NOTE | 2024-04-04 08:41 | PN.CDI ---
CDI
- -
CDI:
Physician Documentation Request
Admit Date: 03/31/24 06:10
Dear Doctor Frank,
Clinical Indicators:
Patient admitted with ovarian cancer; s/p JORGE/BSO, debulking, sigmoidectomy with colorectal anastomosis 03/31.
04/03 PN, 'Possible pneumonia versus atelectasis on CXR'
04/03 CT report, 'New tiny bilateral pleural effusions and accompanying bilateral lower lobe subsegmental atelectasis.'
IS/Acapella ordered.
Please clarify the following:
Pneumonia was ruled out; Atelectasis only
Pneumonia is still a likely, suspected, probable diagnosis
Other, please specify
Use of terms such as suspected, likely, concern for, or probable (associated with a specific diagnosis that is being evaluated, monitored, or treated as if it exists) are acceptable and can be coded in the inpatient setting, when documented at the
time of discharge.
Thank you,
Violeta Chin RN BSN
CDI Specialist
available via tiger text
Please use your independent medical judgment in providing your response.
--- NOTE | 2024-04-04 09:58 | W.PN.HOSP.TC ---
Today's Communication/Plan
-
see plan
Assessment / Plan
Assessment / Plan
Physical Exam
General: Conversant, AAOx3, No Fever or Chills
HEENT: NormoCephalic, Anicteric, PERRLA, [place] Conjunctivae, No Ptosis, Oxygen (2 L) and Other (Dry oral mucosa)
Respiratory: Clear; No Wheezes, Rales or Rhonchi
Cardiac: S1/S2 and Regular Rhythm; No Murmur, Rub, Gallop or Peripheral Edema
Breast: Deferred by me
GI: Soft, Normal Bowel Sounds, Tender (Generalized) and Other (Longitudinal Aquacel dressing in place no surrounding drainage or erythema)
Rectal: Deferred by Provider
Genito-urinary: Oh
Musculoskeletal: No Clubbing, No Cyanosis and No Edema
Skin: Warm, Dry and Other (Port right upper chest wall); No Rash
Neuro: No Motor Deficits, Cranial Nerves Intact, No Sensory Deficits, Sedated and Other (Very drowsy falls asleep during exam has episodes of hypoxia dropping O2 to 65% is requiring nasal cannula oxygen 2 L); No Slurred Speech, Facial Droop or
Tremors
Psych: Calm
Abdomen/Pelvic CT 04/03/24
IMPRESSION:
Extensive abdominal pelvic surgery in the interval since recent prior CT, as noted above.
At least one soft tissue density lesion seen adjacent to midline anterior abdominal wall incision site measuring up to 3.4 cm, larger in size in comparison to several smaller foci seen on prior study. This could represent a high attenuation density
hematoma. Implant lesion cannot be excluded. Some superficial bubbles of air within the fatty soft tissues of the anterior abdominal wall likely the sequela of recent surgery.
Distal colonic anastomosis again seen.
Small volume free fluid/simple ascites seen, most prominent in the right upper quadrant.
Small volume free fluid in the true pelvis. Evaluation for discrete well-formed abnormal focal fluid collection such as an abscess markedly limited without oral contrast.
New tiny bilateral pleural effusions and accompanying bilateral lower lobe subsegmental atelectasis.
Fluid-filled dilated stomach, duodenum and proximal to mid small bowel with distal small bowel normal in caliber, transition zone difficult to determine, likely in the left lower quadrant with possible early partial small bowel obstruction. No free
air.
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
#S/p hysterectomy with bilateral salpingo-oophorectomy, pelvic omentum removal, radical tumor debulking, colorectal anastomosis, anterior abdominal wall tumor implant by Dr. Hunt 03/31
#Patient on chemotherapy Taxol and carboplatin last infusion was 3 weeks ago she reports she has 3 infusions left follows with in [place]
# Post-op Ileus versus early SBO
-nausea and distention improved today
-appreciate RESIDENTIAL FIELD MANAGER/Onc
-appreciate GS
-NPO; can likely advance to clears - follow up repeat abdominal x-ray
-IVF
-pain control
-worked with PT/OT - home PT on DC
#acute blood loss anemia
- most likely post op complication
--2u prbc given 04/01
- Hg relatively stable
#Shock, undifferentiated; suspect response to anesthesia, concern for possible translocation of gut bacteria
#Possible pneumonia versus atelectasis on CXR
-off pressors 03/31 evening
-IV Zosyn d/c'd on 04/02
-BP stable, now mildly hypertensive overnight
#Leukocytosis
�Receving rolevedon which is biosimilar to neulasta which tends to cause a longer leukocytosis
-likely component stress reaction to ileus
#Hx HTN�benign
-resume amlodipine 5 mg daily, metoprolol succinate 12.5 mg at bedtime,
-continue to hold valsartan 160 mg dailyf or now
#Acute hypoxic resp insufficiency with episodes of apnea secondary to surgical anesthesia and pain control with opiates - improved
Pulse ox will drop as low as 65% is 97% on 2 L nasal cannula
-will need sleep study outpt
-Supportive O2 nasal cannula
-Afebrile, negative cough
#Hypokalemia possible medication versus malnutrition
#Hypophosphatemia
monitor and replete
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
# HX left lumpectomy and sentinel lymph node biopsies in May 2018. She was BRCA low risk. She also underwent radiation to this left breast that was completed in August 2018
-Completed 5-year Arimidex September 2018
# hx Marginal zone lymphoma
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 Holloway for her lymphoma
DVT prophylaxis
lovenox subQ resumed 04/02
Full code
Anticipated Discharge: 24 - 48 hours
Subjective/Interval History
-
Date of Service: April 04, 2024
feeling better today
passing gas and had liquid BM
no longer nauseated
Objective Data
-
Labs:
Laboratory Results
04/04/24
05:07
WBC 13.6 H
Hgb 10.1 L
Hct 28.8 L
Plt Count 209
Sodium 140
Potassium 3.8
Chloride 107
Carbon Dioxide 20 L
BUN 14
Creatinine 0.6
Glucose 81
Calcium 8.1 L
Total Bilirubin 0.9
AST 34
ALT 14
Alkaline Phosphatase 72
Vital Signs:
Vital Signs
Temp Pulse Resp BP Pulse Ox
98.6 F 90 16 121/57 97
04/04/24 07:45 04/04/24 07:45 04/04/24 07:45 04/04/24 07:45 04/04/24 07:45
I&O
04/03/24 04/04/24 04/05/24
06:59 06:59 06:59
Intake Total 1620 / 1620 1145 / 1145
Output Total 500 / 500
Balance 1120 / 1120 1144 / 1144
Review of Systems
-
History Source: Patient
All other systems: Reviewed and negative
Data Reviewed
-
Diagnostic Radiology: Report Reviewed by me
Labs: Labs Reviewed by me
--- NOTE | 2024-04-04 11:15 | W.PN.GYNONC ---
Today's Communication
-
n/a
Impression / Plan
-
S/p hysterectomy with bilateral salpingo-oophorectomy, pelvic omentum removal, radical tumor debulking, colorectal anastomosis, anterior abdominal wall tumor implant
Advancing diet to full liquids
s/p 2u prbc given 04/01. hgb 11 today
Leukocytosis. wbc declining now 12K
she has Essential HTN, restart amlodipine 5 mg daily, and metoprolol succinate 12.5 mg at bedtime,
increase ambulation, PT eval
DVT prophylaxis, Lovenox 40 mg subcutaneous daily
04/04/24- POD 4
continue NPO advance diet per colorectal
continue to ambulate
Subjective / Interval History
-
POD #4 healing better than yesterday She states she is passing gas and has had several BM Still having nausea and 1 episode of vomiting over night. Less drainage from the incision bandage was last changed at 6 pm.
Objective Data
-
Lab Results:
04/04/24 05:07
04/04/24 05:07
Physical Exam
Vital Signs / I&O
Vitals
Temp Pulse Resp BP Pulse Ox
98.6 F 90 16 121/57 97
04/04/24 07:45 04/04/24 07:45 04/04/24 07:45 04/04/24 07:45 04/04/24 07:45
I&O
04/02/24 04/03/24 04/04/24 04/05/24
06:59 06:59 06:59 06:59
Intake Total 2235 / 2235 1620 / 1620 1145 / 1145
Output Total 2150 / 2150 500 / 500
Balance 85 / 85 1120 / 1120 1144 / 1144
Physical Exam
VSS
bandage from incision removed no active bleeding or drainage. small hematoma at lower end of incision New bandage applied abdomen is soft BS present incisional tenderness.
extremities- no edema pumps on
Data Reviewed
-
CT Scan: Discussed with Physician
Lab Data: Labs Reviewed and Discussed with Physician
--- NOTE | 2024-04-04 11:37 | W.PN.GYNONC ---
Today's Communication
-
npo due to ileus
Impression / Plan
-
POD4
S/p hysterectomy with bilateral salpingo-oophorectomy, pelvic omentum removal, radical tumor debulking, colorectal anastomosis, anterior abdominal wall tumor implant
Due to suspected ileus patient has been made n.p.o. and is on IV fluid
In the last 12 hours she has started having bowel function, x-ray today is suggestive of residual ileus. I anticipate hopefully advancing diet tomorrow
Incision has been explored yesterday at the bedside in 2 separate locations for concern about bleeding. There is only serosanguineous fluid draining from the lower aspect.
Leukocytosis. wbc declining now 12K
she has Essential HTN, restart amlodipine 5 mg daily, and metoprolol succinate 12.5 mg at bedtime,
increase ambulation, PT eval completed today.
Subjective / Interval History
-
POD4
Patient reports 1 episode of emesis last night.
She has had multiple bowel movements in the last 12 hours, starting to become more formed, currently thick liquid
She does express having appetite and does not feel nauseous
Objective Data
-
Lab Results:
04/04/24 05:07
04/04/24 05:07
Order #:[id number]
Exams: CT Abd/pelvis W Iv Cont
CPT: 47469
PROCEDURES: CT Abd/pelvis W Iv Cont
CLINICAL INDICATION: New anterior abdominal wall bleeding at surgical site.
TECHNIQUE: A CT examination of the abdomen and pelvis was performed following the administration of intravenous contrast. Oral contrast was not administered, per request. Coronal and sagittal reformatted images were obtained. Automatic exposure
control radiation dose reduction technology was utilized.
COMPARISON: March 29, 2024.
The patient is noted to be status post extensive abdominal pelvic surgery including hysterectomy with bilateral salpingo-oophorectomy, pelvic omentum removal, right apical tumor debulking and colorectal anastomosis in the interval since prior CT.
FINDINGS:
CHEST:There are new tiny bilateral pleural effusions and accompanying bilateral lower lobe subsegmental atelectasis, left greater than right in comparison to recent prior study.
ABDOMEN:There is a new small volume free fluid/ascites most prominent in the right upper quadrant, simple fluid density. There is marked fluid distention of the stomach, duodenum and proximal to mid small bowel with distal small bowel normal in
caliber, discrete focal transition zone difficult to determine, most likely in the left lower quadrant. There is no free air. There is no gross focal intrinsic abnormality of the gallbladder, liver, pancreas, adrenal glands or kidneys with symmetric
renal excretion. There are no findings to suggest biliary tract dilatation. There is no retroperitoneal lymphadenopathy. The abdominal aorta is normal in caliber with calcific atherosclerotic changes. Midline anterior abdominal wall recent surgical
site is seen with skin ryan as well as a few bubbles of air. At least one high attenuation nodule is noted within the superficial fatty soft tissues of the anterior abdominal wall adjacent to the surgical site measuring 3.4 x 2.3 x 1.8 cm as
compared to several smaller foci of similar density, approximately 70 Hounsfield units seen on prior study. A few small bubbles of air is seen within the superficial fatty soft tissues of the left anterior abdominal wall.
PELVIS:Distal colonic anastomosis is noted. There is small volume free fluid, dependent. Distal colonic diverticulosis is seen. No focal intrinsic abnormality of the urinary bladder is seen.
SKELETON:There is no suspicious osseous lesion.
IMPRESSION:
Extensive abdominal pelvic surgery in the interval since recent prior CT, as noted above.
At least one soft tissue density lesion seen adjacent to midline anterior abdominal wall incision site measuring up to 3.4 cm, larger in size in comparison to several smaller foci seen on prior study. This could represent a high attenuation density
hematoma. Implant lesion cannot be excluded. Some superficial bubbles of air within the fatty soft tissues of the anterior abdominal wall likely the sequela of recent surgery.
Distal colonic anastomosis again seen.
Small volume free fluid/simple ascites seen, most prominent in the right upper quadrant.
Small volume free fluid in the true pelvis. Evaluation for discrete well-formed abnormal focal fluid collection such as an abscess markedly limited without oral contrast.
New tiny bilateral pleural effusions and accompanying bilateral lower lobe subsegmental atelectasis.
Fluid-filled dilated stomach, duodenum and proximal to mid small bowel with distal small bowel normal in caliber, transition zone difficult to determine, likely in the left lower quadrant with possible early partial small bowel obstruction. No free
air.
Electronically signed by Rene Mark MD, 04/03/2024 8:11 PM
[employer] Dose Report: Up-to-date CT equipment and radiation dose reduction techniques were employed. CTDIvol: 6.7 mGy. DLP: 628 mGy-cm.
Dictated By: Jas CORTEZ,Rene Chi.
Dictated Date & Time: 04/03/241954
Physical Exam
Vital Signs / I&O
Vitals
Temp Pulse Resp BP Pulse Ox
98.6 F 90 16 121/57 97
04/04/24 07:45 04/04/24 07:45 04/04/24 07:45 04/04/24 07:45 04/04/24 08:29
I&O
04/02/24 04/03/24 04/04/24 04/05/24
06:59 06:59 06:59 06:59
Intake Total 2235 / 2235 1620 / 1620 1145 / 1145
Output Total 2150 / 2150 500 / 500
Balance 85 / 85 1120 / 1120 1144 / 1144
Physical Exam
General: Well Nourished and No Apparent Distress
Respiratory: Clear and Non Labored Respirations
Cardiac: S1/S2 and Regular Rhythm
GI: Soft, Non Distended and Other (Incision is intact with ryan, she continues to have small serosanguineous drainage from the lower aspect of the incision consistent with postoperative seroma.)
Hematologic/Lymphatic: No Lymphadenopathy
Psych: Calm and Intact Judgement
--- NOTE | 2024-04-04 12:40 | CM ---
Addendum entered by Kerri Toledo 04/04/24 14:11:
Out of area per [facility]
Referral sent to [facility] for HH needs in [facility]
Plan - anticipate home with [facility] when medically ready
Original Note:
Case management following for discharge planning
Chart reviewed. Met with pt at bedside
PT/OT recs - HH. Discussed with pt - agreeable to HH
Has no preference
TT sent to [facility]ia[facility] for HH needs
Plan - anticipate home with [facility] when medically stable
--- NOTE | 2024-04-04 12:55 | W.PN.CRS1 ---
Today's Communication / Plan
-
xrays
Assessment/Plan
-
POD#4
-Abdominal xrays this AM
-NPO for now
-Continue pain medication/zofran
-On Lovenox for DVT prophyalxis
Subjective Data
Procedure
03/31 - Exploratory laparotomy, radical tumor debulking including total abdominal hysterectomy, bilateral salpingo-oophorectomy resection of anterior and posterior cul-de-sac, bilateral pelvic lymphadenectomy, infracolic and gastrocolic omentectomy,
resection of multiple peritoneal tumor implants including cecal implant and the right round ligament implant
Sigmoid colectomy with low colorectal anastomosis, mobilization of splenic flexure, rigid sigmoidoscopy
Resection of supraumbilical anterior abdominal wall subcutaneous tumor
Subjective Data
Date of Service: April 04, 2024
Patient states she vomited once overnight. She had some nausea which is resolved. She is thirsty. She denies pain. She had a bout of loose stools overnight and has flatus now.
Objective Data
-
Vital Signs
Temp Pulse Resp BP Pulse Ox
98.6 F 90 16 121/57 97
04/04/24 07:45 04/04/24 07:45 04/04/24 07:45 04/04/24 07:45 04/04/24 08:29
Intake & Output
04/03/24 04/04/24 04/05/24
06:59 06:59 06:59
Intake Total 1620 / 1620 1145 / 1145
Output Total 500 / 500
Balance 1120 / 1120 1144 / 1144
Intake:
Oral fluids 1620 / 1620 120 / 120
IV fluids (Total) 825 / 825
IV piggybacks 200 / 200
Output:
Liquid stool amount
Rectum
Urine, Voided 500 / 500
Other:
Number of approximated SMALL 1 3
amounts of urine
Number of approximated MODERATE 2 2
amounts of urine
Number of approximated LARGE 2
amounts of urine
Lab Results
04/04/24 05:07
04/04/24 05:07
Physical Exam
-
Abdomen: Soft, Non Distended and Non Tender
Wound: Dressing in Place
[2024-04-04 15:09] VITALS: BP 126/65
[2024-04-04] MEDS: MUCINEX 600 MG PO (20:47)
[2024-04-04] MEDS: TOPROL XL 12.5 MG PO (21:46)
[2024-04-04 23:30] VITALS: BP 153/79
[2024-04-05] MEDS: TYLENOL 1000 MG PO ×4 (00:03→18:49)
[2024-04-05 00:05] VITALS: BP 134/69
[2024-04-05 05:17] LABS: Hematocrit 26.7 % (37.0-47.0); Hemoglobin 9.2 g/dL (12.0-16.0); Mean Corp Hgb Conc. 34.5 g/dL (33.0-37.0); Mean Corpuscular Hgb 30.5 pg (27.0-31.0); Mean Corpuscular Volume 88.4 fL (81.0-99.0); Mean Platelet Volume 9.7 fL (7.4-10.4); Platelet Count 219 10^3/uL (130-400); Red Blood Cell Count 3.02 10^6/uL (4.20-5.40); Red Cell Dist. Width 19.9 % (11.5-14.5); White Blood Cell Count 13.1 10^3/uL (4.8-10.8)
[2024-04-05 05:38] LABS: ALT (SGPT) 14 U/L (0-35); AST (SGOT) 31 U/L (14-36); Albumin 2.8 g/dl (3.5-5.0); Alkaline Phosphatase 58 U/L (38-126); Blood Urea Nitrogen 12 mg/dl (7-17); Calcium 8.2 mg/dl (8.4-10.2); Carbon Dioxide 19 mmol/L (22-30); Chloride 109 mmol/L (98-107); Estimated Creatinine Clearance 56 ml/min; Glucose 94 mg/dl (70-99); Potassium 3.4 mmol/L (3.5-5.1); Sodium 138 mmol/L (135-145); Total Bilirubin 0.9 mg/dl (0.2-1.3); Total Protein 4.9 g/dl (6.3-8.2); eGFR > 60.00
[2024-04-05 06:00] VITALS: BMI 24.1
[2024-04-05 07:00] VITALS: BP 157/80
[2024-04-05] MEDS: MUCINEX 600 MG PO (08:14)
[2024-04-05] MEDS: NORVASC 5 MG PO (08:14)
--- NOTE | 2024-04-05 08:29 | W.PN.GYNONC ---
Today's Communication
-
regular diet
d/c IV
Impression / Plan
-
POD5
S/p hysterectomy with bilateral salpingo-oophorectomy, pelvic omentum removal, radical tumor debulking, colorectal anastomosis, anterior abdominal wall tumor implant
resolving ileus- tolerated liquids yesterday and continued passing gas and BM- will advance diet today and d/c IV.
leukocytosis is stable at 13
continue ambulation
Subjective / Interval History
-
POD 5- Had a good day yesterday up in the chair this morning tolerating liquids and oral medications Still passing gas and having BM She complains of fluid retention.
Objective Data
-
Lab Results:
04/05/24 05:05
04/05/24 05:05
Physical Exam
Vital Signs / I&O
Vitals
Temp Pulse Resp BP Pulse Ox
98.5 F 95 16 157/80 95
04/05/24 07:00 04/05/24 07:00 04/05/24 07:00 04/05/24 07:00 04/05/24 07:00
I&O
04/03/24 04/04/24 04/05/24 04/06/24
06:59 06:59 06:59 06:59
Intake Total 1620 / 1620 1145 / 1145 2720 / 2720
Output Total 500 / 500
Balance 1120 / 1120 1144 / 1144 2720 / 2720
Physical Exam
VSS
afebrile
abdomen is soft, incision is dry
extremities- slight edema
Data Reviewed
-
Lab Data: Discussed with Physician
--- NOTE | 2024-04-05 09:10 | W.PN.CRS1 ---
Today's Communication / Plan
-
Advance diet
Assessment/Plan
-
POD# 5
-Diet advance per primary team
-Improving overall. No further imaging needed.
-Continue pain medication/zofran
-On Lovenox for DVT prophyalxis
Subjective Data
Procedure
03/31 - Exploratory laparotomy, radical tumor debulking including total abdominal hysterectomy, bilateral salpingo-oophorectomy resection of anterior and posterior cul-de-sac, bilateral pelvic lymphadenectomy, infracolic and gastrocolic omentectomy,
resection of multiple peritoneal tumor implants including cecal implant and the right round ligament implant
Sigmoid colectomy with low colorectal anastomosis, mobilization of splenic flexure, rigid sigmoidoscopy
Resection of supraumbilical anterior abdominal wall subcutaneous tumor
Subjective Data
Date of Service: April 05, 2024
Patient states she has no nausea or vomiting. She feels less bloated. She is having bowel movements and flatus. She is tolerating a clear liquid diet. She has been out of bed and walking.
Objective Data
-
Vital Signs
Temp Pulse Resp BP Pulse Ox
98.5 F 95 16 157/80 95
04/05/24 07:00 04/05/24 07:00 04/05/24 07:00 04/05/24 07:00 04/05/24 07:00
Intake & Output
04/04/24 04/05/24 04/06/24
06:59 06:59 06:59
Intake Total 1145 / 1145 2720 / 2720
Output Total
Balance 1144 / 1144 2720 / 2720
Intake:
Oral fluids 120 / 120 1620 / 1620
IV fluids (Total) 825 / 825 900 / 900
IV piggybacks 200 / 200 200 / 200
Output:
Liquid stool amount
Rectum
Other:
Number of approximated SMALL 3 3
amounts of urine
Number of approximated MODERATE 2 3
amounts of urine
Lab Results
04/05/24 05:05
04/05/24 05:05
Physical Exam
-
General: No Acute Distress and AOx3
Abdomen: Soft, Distended (Mild) and Tender (Around incision)
Wound: Dressing in Place
Incision: Clear, Dry, Intact
--- NOTE | 2024-04-05 09:29 | W.PN.HOSP.TC ---
Addendum entered and electronically signed by Tessie Marie MD 04/05/24 09:34:
Pneumonia was ruled out; Atelectasis only
Original Note:
Today's Communication/Plan
-
advancing diet
stop fluids - if patient remains significantly swollen tomorrow consider lasix
replete K
Assessment / Plan
Assessment / Plan
Abdomen/Pelvic CT 04/03/24
IMPRESSION:
Extensive abdominal pelvic surgery in the interval since recent prior CT, as noted above.
At least one soft tissue density lesion seen adjacent to midline anterior abdominal wall incision site measuring up to 3.4 cm, larger in size in comparison to several smaller foci seen on prior study. This could represent a high attenuation density
hematoma. Implant lesion cannot be excluded. Some superficial bubbles of air within the fatty soft tissues of the anterior abdominal wall likely the sequela of recent surgery.
Distal colonic anastomosis again seen.
Small volume free fluid/simple ascites seen, most prominent in the right upper quadrant.
Small volume free fluid in the true pelvis. Evaluation for discrete well-formed abnormal focal fluid collection such as an abscess markedly limited without oral contrast.
New tiny bilateral pleural effusions and accompanying bilateral lower lobe subsegmental atelectasis.
Fluid-filled dilated stomach, duodenum and proximal to mid small bowel with distal small bowel normal in caliber, transition zone difficult to determine, likely in the left lower quadrant with possible early partial small bowel obstruction. No free
air.
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
#S/p hysterectomy with bilateral salpingo-oophorectomy, pelvic omentum removal, radical tumor debulking, colorectal anastomosis, anterior abdominal wall tumor implant by Dr. Hunt 03/31
#Patient on chemotherapy Taxol and carboplatin last infusion was 3 weeks ago she reports she has 3 infusions left follows with in [place]
# Post-op Ileus versus early SBO
-nausea and distention improved today
-appreciate [employer]/Onc
-appreciate GS
-diet advanced per surgery
-IVF - now off (weight gain, swelling)
-pain control
-worked with PT/OT - home PT on DC
#acute blood loss anemia
- most likely post op complication
--2u prbc given 04/01
- Hg relatively stable
#Shock, undifferentiated; suspect response to anesthesia, concern for possible translocation of gut bacteria
#Possible pneumonia versus atelectasis on CXR
-off pressors 03/31 evening
-IV Zosyn d/c'd on 04/02
-BP stable, now mildly hypertensive overnight
#Leukocytosis
�Receving rolevedon which is biosimilar to neulasta which tends to cause a longer leukocytosis
-likely component stress reaction to ileus
#Hx HTN�benign
-resume amlodipine 5 mg daily, metoprolol succinate 12.5 mg at bedtime,
-continue to hold valsartan 160 mg dailyf or now
#Acute hypoxic resp insufficiency with episodes of apnea secondary to surgical anesthesia and pain control with opiates - improved
Pulse ox will drop as low as 65% is 97% on 2 L nasal cannula
-will need sleep study outpt
-Supportive O2 nasal cannula
-Afebrile, negative cough
#Hypokalemia possible medication versus malnutrition
#Hypophosphatemia
monitor and replete
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
# HX left lumpectomy and sentinel lymph node biopsies in May 2018. She was BRCA low risk. She also underwent radiation to this left breast that was completed in August 2018
-Completed 5-year Arimidex September 2018
# hx Marginal zone lymphoma
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 Holloway for her lymphoma
DVT prophylaxis
lovenox subQ resumed 04/02
Full code
Anticipated Discharge: 24 - 48 hours
Subjective/Interval History
-
Date of Service: April 05, 2024
denies nausea
pain controlled
feels swollen
Objective Data
-
Labs:
Laboratory Results
04/05/24
05:05
WBC 13.1 H
Hgb 9.2 L
Hct 26.7 L
Plt Count 219
Sodium 138
Potassium 3.4 L
Chloride 109 H
Carbon Dioxide 19 L
BUN 12
Creatinine 0.5 L
Glucose 94
Calcium 8.2 L
Total Bilirubin 0.9
AST 31
ALT 14
Alkaline Phosphatase 58
Vital Signs:
Vital Signs
Temp Pulse Resp BP Pulse Ox
98.5 F 95 16 157/80 95
04/05/24 07:00 04/05/24 07:00 04/05/24 07:00 04/05/24 07:00 04/05/24 07:00
I&O
04/04/24 04/05/24 04/06/24
06:59 06:59 06:59
Intake Total 1145 / 1145 2720 / 2720
Output Total
Balance 1144 / 1144 2720 / 2720
Review of Systems
-
History Source: Patient
All other systems: Reviewed and negative
Physical Exam
-
General: No Apparent Distress and Conversant
HEENT: PERRLA
Respiratory: Clear to Auscultation; Negative Wheezes
Cardiac: Regular Rhythm and S1/S2
GI: Other (surgical incision covered c/d/i)
Musculoskeletal: Other (b/l LE edema )
Skin: Warm and Dry; Negative Rash
Neuro: AO x 3
Psych: Calm
Data Reviewed
-
Diagnostic Radiology: Report Reviewed by me
Labs: Labs Reviewed by me
[2024-04-05] MEDS: NSS IV (10:01)
[2024-04-05] MEDS: KCL 20 MEQ PO (14:44)
--- NOTE | 2024-04-05 14:47 | CM ---
Case management following for discharge planning
Chart reviewed
Advancing diet as tolerated
Accepted by [facility] for HH needs
Plan - anticipate home with [facility] when medically stable
f - [phone]
[2024-04-05] MEDS: LOVENOX 40 MG SC (18:49)
[2024-04-05] MEDS: TOPROL XL 12.5 MG PO (21:12)
[2024-04-05] MEDS: MUCINEX PO (21:22)
[2024-04-05 23:37] VITALS: BP 134/66
[2024-04-06] MEDS: TYLENOL 650 MG PO (01:12)
[2024-04-06 05:22] VITALS: BMI 24.1
[2024-04-06] MEDS: LASIX 20 MG IV (06:48)
[2024-04-06] MEDS: KLOR-CON 40 MEQ PO (06:48)
--- NOTE | 2024-04-06 07:44 | W.PN.GYNONC ---
Today's Communication
-
diuresis today
plan for dc home tomorrow
Impression / Plan
-
POD6
S/p hysterectomy with bilateral salpingo-oophorectomy, pelvic omentum removal, radical tumor debulking, colorectal anastomosis, anterior abdominal wall tumor implant
ileus has resolved, she has faltus and BM.
tolerating her solid food well last 2 meals
feels swelling of LE, and is about 12 lbs over baseline weight.
Lasix 20 mg IV given, also 40 meq K given
continue regular diet
planning on dc home tomorrow, case management consulted
I advised her to use eliquis 2.5 mg po BID for VTE prophylaxis x 3 weeks (total of 4 weeks post op)
we discussed home instructions and restriction ( avoid driving 2 weeks post op, avoid lifting over 10 lbs 4 weeks post op)
continue ambulation
she was on 3 meds for HTN aat baseline, BP has been ok with amlodipine and metoprolol, consider stopping valsartan. I defer to medicine and her PCP eventually
Rene Hunt
Subjective / Interval History
-
she slept well last night, has passed a lot of flatus last evening. BM yesterday
she denies any pain.
Objective Data
-
Lab Results:
cbc, bmp pending
Physical Exam
Vital Signs / I&O
Vitals
Temp Pulse Resp BP Pulse Ox
98.8 F 88 20 134/66 96
04/05/24 23:37 04/05/24 23:37 04/05/24 23:37 04/05/24 23:37 04/05/24 23:37
I&O
04/04/24 04/05/24 04/06/24 04/07/24
06:59 06:59 06:59 06:59
Intake Total 1145 / 1145 2720 / 2720 960 / 960
Output Total
Balance 1144 / 1144 2719
Physical Exam
General: No Apparent Distress
Respiratory: Clear and Non Labored Respirations
Cardiac: S1/S2 and Regular Rhythm
GI: Soft, Non Distended, Normal Bowel Sounds and Other (incision is dry, ryan in place)
Musculoskeletal: No Edema
Psych: Intact Judgement
[2024-04-06 07:53] VITALS: BP 137/78
[2024-04-06 08:11] LABS: Hematocrit 31.4 % (37.0-47.0); Hemoglobin 10.9 g/dL (12.0-16.0); Mean Corp Hgb Conc. 34.7 g/dL (33.0-37.0); Mean Corpuscular Hgb 30.7 pg (27.0-31.0); Mean Corpuscular Volume 88.5 fL (81.0-99.0); Mean Platelet Volume 9.9 fL (7.4-10.4); Platelet Count 303 10^3/uL (130-400); Red Blood Cell Count 3.55 10^6/uL (4.20-5.40); Red Cell Dist. Width 19.8 % (11.5-14.5); White Blood Cell Count 11.8 10^3/uL (4.8-10.8)
--- NOTE | 2024-04-06 08:27 | W.PN.CRS1 ---
Today's Communication / Plan
-
as below
Assessment/Plan
-
POD 6 s/p ex lap, JORGE/BSO, debulking, sigmoidectomy with colorectal anastomosis by Dr. Maxwell
Tolerating diet with bowel function.
AFVSS
WBC 11.8 from 13.1, Hb 10.9 from 9.2
Delayed return of bowel function, now resolved
Continue regular diet
Continue pain control with Tylenol, Motrin, Dilaudid as needed
Continue DVT PPx with Lovenox; recommend trending hemoglobin
Care per primary and [employer] [facility]
Okay for discharge from colorectal standpoint once medically cleared; will sign off, please call for questions or concerns; she can follow-up with Dr. Mxawell as needed
Subjective Data
Procedure
03/31 - Exploratory laparotomy, radical tumor debulking including total abdominal hysterectomy, bilateral salpingo-oophorectomy resection of anterior and posterior cul-de-sac, bilateral pelvic lymphadenectomy, infracolic and gastrocolic omentectomy,
resection of multiple peritoneal tumor implants including cecal implant and the right round ligament implant
Sigmoid colectomy with low colorectal anastomosis, mobilization of splenic flexure, rigid sigmoidoscopy
Resection of supraumbilical anterior abdominal wall subcutaneous tumor
Subjective Data
Date of Service: April 06, 2024
No overnight events. Denies N/V. Tolerating diet. Passing plenty of flatus, had small soft BMs. Was started on Lasix for edema.
Objective Data
-
Vital Signs
Temp Pulse Resp BP Pulse Ox
98.6 F 93 16 137/78 96
04/06/24 07:53 04/06/24 07:53 04/06/24 07:53 04/06/24 07:53 04/06/24 07:53
Intake & Output
04/05/24 04/06/24 04/07/24
06:59 06:59 06:59
Intake Total 2720 / 2720 960 / 960
Balance 2720 / 2720 960 / 960
Intake:
Oral fluids 1620 / 1620 960 / 960
IV fluids (Total) 900 / 900
IV piggybacks 200 / 200
Other:
Number of approximated SMALL 3
amounts of urine
Number of approximated MODERATE 3 1
amounts of urine
Lab Results
04/06/24 07:31
Physical Exam
-
General: No Acute Distress and AOx3
HEENT: Grossly Normal
Abdomen: Soft, Distended (Mildly distended, not tympanic), Tender (Appropriately tender), No Guarding and No Rebound
Skin: Warm and Dry
Wound: No Signs of Infection, No Skin Erythema and Other (Moderate amount of prakash-incisional ecchymosis, stable)
--- NOTE | 2024-04-06 08:28 | W.PN.HOSP.TC ---
Today's Communication/Plan
-
s/p lasix this morning
Assessment / Plan
Assessment / Plan
Abdomen/Pelvic CT 04/03/24
IMPRESSION:
Extensive abdominal pelvic surgery in the interval since recent prior CT, as noted above.
At least one soft tissue density lesion seen adjacent to midline anterior abdominal wall incision site measuring up to 3.4 cm, larger in size in comparison to several smaller foci seen on prior study. This could represent a high attenuation density
hematoma. Implant lesion cannot be excluded. Some superficial bubbles of air within the fatty soft tissues of the anterior abdominal wall likely the sequela of recent surgery.
Distal colonic anastomosis again seen.
Small volume free fluid/simple ascites seen, most prominent in the right upper quadrant.
Small volume free fluid in the true pelvis. Evaluation for discrete well-formed abnormal focal fluid collection such as an abscess markedly limited without oral contrast.
New tiny bilateral pleural effusions and accompanying bilateral lower lobe subsegmental atelectasis.
Fluid-filled dilated stomach, duodenum and proximal to mid small bowel with distal small bowel normal in caliber, transition zone difficult to determine, likely in the left lower quadrant with possible early partial small bowel obstruction. No free
air.
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
#S/p hysterectomy with bilateral salpingo-oophorectomy, pelvic omentum removal, radical tumor debulking, colorectal anastomosis, anterior abdominal wall tumor implant by Dr. Hunt 03/31
#Patient on chemotherapy Taxol and carboplatin last infusion was 3 weeks ago she reports she has 3 infusions left follows with in [place]
# Post-op Ileus versus early SBO
-nausea and distention improved
-appreciate [employer]/Onc
-appreciate GS
-diet advanced per surgery
-IVF - now off (weight gain, swelling); s/p lasix this morning
-pain control
-worked with PT/OT - home PT on DC
#acute blood loss anemia
- most likely post op complication
--2u prbc given 04/01
- Hg relatively stable
#Shock, undifferentiated; suspect response to anesthesia, concern for possible translocation of gut bacteria
#Possible pneumonia versus atelectasis on CXR
-off pressors 03/31 evening
-IV Zosyn d/c'd on 04/02
-BP stable, now mildly hypertensive overnight
#Leukocytosis
�Receving rolevedon which is biosimilar to neulasta which tends to cause a longer leukocytosis
-likely component stress reaction to ileus
#Hx HTN�benign
-resume amlodipine 5 mg daily, metoprolol succinate 12.5 mg at bedtime,
-resume [employer] Valsartan
#Acute hypoxic resp insufficiency with episodes of apnea secondary to surgical anesthesia and pain control with opiates - improved
Pulse ox will drop as low as 65% is 97% on 2 L nasal cannula
-will need sleep study outpt
-Supportive O2 nasal cannula
-Afebrile, negative cough
#Hypokalemia possible medication versus malnutrition
#Hypophosphatemia
monitor and replete
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
# HX left lumpectomy and sentinel lymph node biopsies in May 2018. She was BRCA low risk. She also underwent radiation to this left breast that was completed in August 2018
-Completed 5-year Arimidex September 2018
# hx Marginal zone lymphoma
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 Holloway for her lymphoma
DVT prophylaxis
lovenox subQ resumed 04/02
Full code
Anticipated Discharge: 24 - 48 hours
Subjective/Interval History
-
Date of Service: April 06, 2024
continues to feel swollen
status post lasix this morning
Objective Data
-
Labs:
Laboratory Results
04/06/24
07:31
WBC 11.8 H
Hgb 10.9 L
Hct 31.4 L
Plt Count 303 D
Sodium Pending
Potassium Pending
Chloride Pending
Carbon Dioxide Pending
BUN Pending
Creatinine Pending
Glucose Pending
Calcium Pending
Vital Signs:
Vital Signs
Temp Pulse Resp BP Pulse Ox
98.6 F 93 16 137/78 96
04/06/24 07:53 04/06/24 07:53 04/06/24 07:53 04/06/24 07:53 04/06/24 07:53
I&O
04/05/24 04/06/24 04/07/24
06:59 06:59 06:59
Intake Total 2720 / 2720 960 / 960
Balance 2720 / 2720 960 / 960
Review of Systems
-
History Source: Patient
All other systems: Reviewed and negative
Physical Exam
-
General: No Apparent Distress and Conversant
HEENT: PERRLA
Respiratory: Clear to Auscultation; Negative Wheezes
Cardiac: Regular Rhythm and S1/S2
GI: Other (surgical incision covered c/d/i)
Musculoskeletal: Other (b/l LE edema )
Skin: Warm and Dry; Negative Rash
Neuro: AO x 3
Psych: Calm
Data Reviewed
-
Diagnostic Radiology: Report Reviewed by me
Labs: Labs Reviewed by me
[2024-04-06 08:29] LABS: Blood Urea Nitrogen 6 mg/dl (7-17); Calcium 8.8 mg/dl (8.4-10.2); Carbon Dioxide 24 mmol/L (22-30); Chloride 103 mmol/L (98-107); Estimated Creatinine Clearance 56 ml/min; Glucose 101 mg/dl (70-99); Potassium 3.4 mmol/L (3.5-5.1); Sodium 139 mmol/L (135-145); eGFR > 60.00
[2024-04-06] MEDS: NORVASC 5 MG PO (09:42)
[2024-04-06] MEDS: MUCINEX 600 MG PO ×2 (09:42→21:33)
[2024-04-06] MEDS: DIOVAN 160 MG PO (09:44)
--- NOTE | 2024-04-06 12:00 | CM ---
met with patient at bedside.she is pod#5 sp lynette/bso/debulking/colorectal anastamosis,tolerating regular diet,bowel functioning.patient will probably dc home today or tomorrow.patient signed imm letter.Plan:home with ilene woodruff and home pt.
[2024-04-06 15:34] VITALS: BP 136/71
[2024-04-06] MEDS: LOVENOX 40 MG SC (17:40)
[2024-04-06] MEDS: TOPROL XL 12.5 MG PO (21:33)
[2024-04-06 22:05] VITALS: BP 119/70
[2024-04-07 04:56] LABS: Hemoglobin 9.2 g/dL (12.0-16.0); Mean Corp Hgb Conc. 35.4 g/dL (33.0-37.0); Mean Corpuscular Hgb 31.3 pg (27.0-31.0); Mean Corpuscular Volume 88.4 fL (81.0-99.0); Mean Platelet Volume 10.1 fL (7.4-10.4); Platelet Count 296 10^3/uL (130-400); Red Blood Cell Count 2.94 10^6/uL (4.20-5.40); Red Cell Dist. Width 19.9 % (11.5-14.5); White Blood Cell Count 9.9 10^3/uL (4.8-10.8)
[2024-04-07 05:28] LABS: Blood Urea Nitrogen 8 mg/dl (7-17); Calcium 8.7 mg/dl (8.4-10.2); Carbon Dioxide 27 mmol/L (22-30); Chloride 102 mmol/L (98-107); Estimated Creatinine Clearance 56 ml/min; Glucose 95 mg/dl (70-99); Potassium 3.5 mmol/L (3.5-5.1); Sodium 137 mmol/L (135-145); eGFR > 60.00
[2024-04-07 06:00] VITALS: BMI 23.7
[2024-04-07] MEDS: KCL 40 MEQ PO (06:00)
[2024-04-07] MEDS: FLUSH (NSS) 2 FLUSH IV (06:01)
[2024-04-07] MEDS: LASIX 20 MG IV (06:01)
[2024-04-07 07:53] VITALS: BP 116/74
[2024-04-07] MEDS: DIOVAN 160 MG PO (08:16)
[2024-04-07] MEDS: NORVASC 5 MG PO (08:17)
[2024-04-07] MEDS: MUCINEX PO (08:18)
--- NOTE | 2024-04-07 09:29 | W.PN.HOSP.TC ---
Today's Communication/Plan
-
plan is for DC later today
Assessment / Plan
Assessment / Plan
Abdomen/Pelvic CT 04/03/24
IMPRESSION:
Extensive abdominal pelvic surgery in the interval since recent prior CT, as noted above.
At least one soft tissue density lesion seen adjacent to midline anterior abdominal wall incision site measuring up to 3.4 cm, larger in size in comparison to several smaller foci seen on prior study. This could represent a high attenuation density
hematoma. Implant lesion cannot be excluded. Some superficial bubbles of air within the fatty soft tissues of the anterior abdominal wall likely the sequela of recent surgery.
Distal colonic anastomosis again seen.
Small volume free fluid/simple ascites seen, most prominent in the right upper quadrant.
Small volume free fluid in the true pelvis. Evaluation for discrete well-formed abnormal focal fluid collection such as an abscess markedly limited without oral contrast.
New tiny bilateral pleural effusions and accompanying bilateral lower lobe subsegmental atelectasis.
Fluid-filled dilated stomach, duodenum and proximal to mid small bowel with distal small bowel normal in caliber, transition zone difficult to determine, likely in the left lower quadrant with possible early partial small bowel obstruction. No free
air.
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
#S/p hysterectomy with bilateral salpingo-oophorectomy, pelvic omentum removal, radical tumor debulking, colorectal anastomosis, anterior abdominal wall tumor implant by Dr. Hunt 03/31
#Patient on chemotherapy Taxol and carboplatin last infusion was 3 weeks ago she reports she has 3 infusions left follows with in [place]
# Post-op Ileus versus early SBO
-nausea and distention improved
-appreciate [employer]/Onc
-appreciate GS
-diet advanced per surgery
-IVF - now off (weight gain, swelling); s/p lasix this morning
-pain control
-worked with PT/OT - home PT on DC
Iatrogenic volume overload
-can DC on lasix 20mg PO daily PRN LE swelling/weight gain as she is still 10lbs up
#acute blood loss anemia
- most likely post op complication
--2u prbc given 04/01
- Hg relatively stable
#Shock, undifferentiated; suspect response to anesthesia, concern for possible translocation of gut bacteria
#Possible pneumonia versus atelectasis on CXR
-off pressors 03/31 evening
-IV Zosyn d/c'd on 04/02
-BP stable, now mildly hypertensive overnight
#Leukocytosis
�Receving rolevedon which is biosimilar to neulasta which tends to cause a longer leukocytosis
-likely component stress reaction to ileus
#Hx HTN�benign
-resume amlodipine 5 mg daily, metoprolol succinate 12.5 mg at bedtime,
-resume [employer] Valsartan
-discussed home BP cuff to give readings to her PCP
#Acute hypoxic resp insufficiency with episodes of apnea secondary to surgical anesthesia and pain control with opiates - improved
Pulse ox will drop as low as 65% is 97% on 2 L nasal cannula
-will need sleep study outpt
-Supportive O2 nasal cannula
-Afebrile, negative cough
#Hypokalemia possible medication versus malnutrition
#Hypophosphatemia
monitor and replete
#Invasive ductal carcinoma grade 2 ER/GA positive HER2 positive
# HX left lumpectomy and sentinel lymph node biopsies in May 2018. She was BRCA low risk. She also underwent radiation to this left breast that was completed in August 2018
-Completed 5-year Arimidex September 2018
# hx Marginal zone lymphoma
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 Holloway for her lymphoma
DVT prophylaxis
lovenox subQ resumed 04/02
Full code
Anticipated Discharge: Today
Subjective/Interval History
-
Date of Service: April 07, 2024
feeling well
swelling improved
ambulated without shortness of breath
Objective Data
-
Labs:
Laboratory Results
04/07/24
04:23
WBC 9.9
Hgb 9.2 L
Hct 26.0 L
Plt Count 296
Sodium 137
Potassium 3.5
Chloride 102
Carbon Dioxide 27
BUN 8
Creatinine 0.5 L
Glucose 95
Calcium 8.7
Vital Signs:
Vital Signs
Temp Pulse Resp BP Pulse Ox
98.9 F 93 16 116/74 97
04/07/24 07:53 04/07/24 08:17 04/07/24 07:53 04/07/24 08:17 04/07/24 07:53
I&O
04/06/24 04/07/24 04/08/24
06:59 06:59 06:59
Intake Total 960 / 960 1440 / 1440
Balance 960 / 960 1440 / 1440
Review of Systems
-
History Source: Patient
All other systems: Reviewed and negative
Physical Exam
-
General: No Apparent Distress and Conversant
HEENT: PERRLA
Respiratory: Clear to Auscultation; Negative Wheezes
Cardiac: Regular Rhythm and S1/S2
GI: Other (surgical incision covered c/d/i)
Musculoskeletal: Other (b/l LE edema )
Skin: Warm and Dry; Negative Rash
Neuro: AO x 3
Psych: Calm
Data Reviewed
-
Diagnostic Radiology: Report Reviewed by me
Labs: Labs Reviewed by me
--- NOTE | 2024-04-07 10:22 | CM ---
Case management following for discharge planning
Pt poss discharge today
Reports her sister is planning to stay with her when discharged. Sister will provide ride home
Katelynn to follow for
Plan - home with Katelynn
f - [phone]
--- NOTE | 2024-04-07 10:44 | W.PN.GYNONC ---
Today's Communication
-
dc home today
Impression / Plan
-
POD6
S/p hysterectomy with bilateral salpingo-oophorectomy, pelvic omentum removal, radical tumor debulking, colorectal anastomosis, anterior abdominal wall tumor implant
ileus has resolved, she has faltus and BM.
tolerating her solid food well last 2 days
feels swelling of LE, and is about 10 lbs over baseline weight.
Lasix 20 mg IV given, also 40 meq K given x 2 days
continue regular diet
planning on dc home today
case management arranged for [facility],and OT
I advised her to use eliquis 2.5 mg po BID for VTE prophylaxis x 3 weeks (total of 4 weeks post op)
we discussed home instructions and restriction ( avoid driving 2 weeks post op, avoid lifting over 10 lbs 4 weeks post op)
continue ambulation
she was on 3 meds for HTN aat baseline, BP has been ok with amlodipine and metoprolol,valsartan added, BPs are good
She ois gonna follow up on 04/21 in office
Rene Hunt
Subjective / Interval History
-
seems well overnight
no new complaints
still 10 lbs up from baseline with LE edema
Objective Data
-
Lab Results:
04/07/24 04:23
04/07/24 04:23
Physical Exam
Vital Signs / I&O
Vitals
Temp Pulse Resp BP Pulse Ox
98.9 F 93 16 116/74 97
04/07/24 07:53 04/07/24 08:17 04/07/24 07:53 04/07/24 08:17 04/07/24 07:53
I&O
04/05/24 04/06/24 04/07/24 04/08/24
06:59 06:59 06:59 06:59
Intake Total 0 / 2720 960 / 960 1440 / 1440
Balance 0 / 2720 960 / 960 1440 / 1440
Physical Exam
General: No Apparent Distress
Respiratory: Clear and Non Labored Respirations
Cardiac: S1/S2 and Regular Rhythm
GI: Soft, Non Distended and Normal Bowel Sounds
Psych: Intact Judgement
Data Reviewed
-
Lab Data: Labs Reviewed
[2024-04-07 15:26] VITALS: BP 123/60
== END 2024-04-07 16:51 | disposition home health service (06) | DRG 734 ==
LOC: 2 SOUTH 06:10
PROVIDERS: Clinical Nurse Specialist Family Health; Internal Medicine; Nurse Practitioner Primary Care; Student in an Organized Health Care Education/Training Program; Surgery; ADMITTING PHYSICIAN Obstetrics & Gynecology Gynecologic Oncology; CONSULT PHYSICIAN Internal Medicine Critical Care Medicine; FAMILY PHYSICIAN Student in an Organized Health Care Education/Training Program
PROC: 0UT20ZZ Resection of Bilateral Ovaries, Open Approach (ICD-10-PCS; 2024-03-31)
PROC: 0UT70ZZ Resection of Bilateral Fallopian Tubes, Open Approach (ICD-10-PCS; 2024-03-31)
PROC: 0JB80ZZ Excision of Abdomen Subcutaneous Tissue and Fascia, Open Approach (ICD-10-PCS; 2024-03-31)
PROC: 0DJD8ZZ Inspection of Lower Intestinal Tract, Via Natural or Artificial Opening Endoscopic (ICD-10-PCS; 2024-03-31)
PROC: 0UT90ZZ Resection of Uterus, Open Approach (ICD-10-PCS; 2024-03-31)
PROC: 0DTN0ZZ Resection of Sigmoid Colon, Open Approach (ICD-10-PCS; 2024-03-31)
PROC: 0DBU0ZZ Excision of Omentum, Open Approach (ICD-10-PCS; 2024-03-31)
PROC: 0DBW0ZZ Excision of Peritoneum, Open Approach (ICD-10-PCS; 2024-03-31)
PROC: 07TC0ZZ Resection of Pelvis Lymphatic, Open Approach (ICD-10-PCS; 2024-03-31)
PROC: 30233N1 Transfusion of Nonautologous Red Blood Cells into Peripheral Vein, Percutaneous Approach (ICD-10-PCS; 2024-04-01)
DX: C56.1 Malignant neoplasm of right ovary (principal); J96.01 Acute respiratory failure with hypoxia; D62 Acute posthemorrhagic anemia; K56.7 Ileus, unspecified; J98.11 Atelectasis; E87.6 Hypokalemia; E83.39 Other disorders of phosphorus metabolism; I10 Essential (primary) hypertension; I95.81 Postprocedural hypotension; Z85.3 Personal history of malignant neoplasm of breast; Z92.21 Personal history of antineoplastic chemotherapy
CPT/HCPCS: 88305; 88307; 88311; 36415; 71045; 71260; 74019; 74177; 80048; 80053; 82248; 83735; 84100; 85025; 85027; 85610; 85730; 86140; 86803; 86850; 86900; 86901; 86920; 86922; 87040; 88112; 93005; 93970; 97116; 97163; 97166; 97530; 97535; C1776; P9016; P9047; Q9967

== ENCOUNTER → 2024-04-17 10:42 | Outpatient (REF) | payer MEDICARE, OTHER, SELFPAY ==
[2024-04-17 12:39] LABS: Blood Urea Nitrogen 14 mg/dl (7-17); Calcium 9.6 mg/dl (8.4-10.2); Carbon Dioxide 23 mmol/L (22-30); Chloride 99 mmol/L (98-107); Glucose 126 mg/dl (70-99); Potassium 4.3 mmol/L (3.5-5.1); Sodium 136 mmol/L (135-145); eGFR > 60.00
== END ==
LOC: REG 10:42
PROVIDERS: ATTENDING PHYSICIAN Student in an Organized Health Care Education/Training Program; REFERRING PHYSICIAN Obstetrics & Gynecology Gynecologic Oncology
DX: R60.0 Localized edema (principal)
CPT/HCPCS: 36415; 80048

== ENCOUNTER → 2024-07-25 08:44 | Outpatient (REF) | payer MEDICARE, OTHER, SELFPAY | LOC: RAD 08:44 | PROVIDERS: ATTENDING PHYSICIAN Internal Medicine Hematology & Oncology; FAMILY PHYSICIAN Student in an Organized Health Care Education/Training Program; REFERRING PHYSICIAN Obstetrics & Gynecology Gynecologic Oncology | DX: D70.1 Agranulocytosis secondary to cancer chemotherapy (principal); C50.412 Malignant neoplasm of upper-outer quadrant of left female breast; M81.0 Age-related osteoporosis without current pathological fracture; D61.818 Other pancytopenia; D51.9 Vitamin B12 deficiency anemia, unspecified; R16.1 Splenomegaly, not elsewhere classified; C88.41 Extranodal marginal zone B-cell lymphoma of mucosa-associated lymphoid tissue [MALT-lymphoma], in remission; C56.1 Malignant neoplasm of right ovary; Z51.11 Encounter for antineoplastic chemotherapy; R11.0 Nausea; Z51.12 Encounter for antineoplastic immunotherapy | CPT/HCPCS: 71260; 74177; Q9967 ==

== ENCOUNTER → 2024-10-31 08:31 | Outpatient (REF) | payer MEDICARE, OTHER, SELFPAY | LOC: RAD 08:31 | PROVIDERS: ATTENDING PHYSICIAN Obstetrics & Gynecology Gynecologic Oncology; FAMILY PHYSICIAN Student in an Organized Health Care Education/Training Program | DX: C50.412 Malignant neoplasm of upper-outer quadrant of left female breast (principal); N81.0 Urethrocele; D61.818 Other pancytopenia; R16.1 Splenomegaly, not elsewhere classified; C88.41 Extranodal marginal zone B-cell lymphoma of mucosa-associated lymphoid tissue [MALT-lymphoma], in remission; C56.1 Malignant neoplasm of right ovary | CPT/HCPCS: 71260; 74177; Q9967 ==

== ENCOUNTER → 2025-02-06 08:15 | Outpatient (REF) | payer MEDICARE, OTHER, SELFPAY | LOC: RAD 08:15 | PROVIDERS: ATTENDING PHYSICIAN Obstetrics & Gynecology Gynecologic Oncology; FAMILY PHYSICIAN Student in an Organized Health Care Education/Training Program; OTHER PHYSICIAN Internal Medicine Gastroenterology; OTHER PHYSICIAN Internal Medicine Hematology & Oncology | DX: C56.1 Malignant neoplasm of right ovary (principal); M81.0 Age-related osteoporosis without current pathological fracture; D61.818 Other pancytopenia; D51.9 Vitamin B12 deficiency anemia, unspecified; R16.1 Splenomegaly, not elsewhere classified; C88.41 Extranodal marginal zone B-cell lymphoma of mucosa-associated lymphoid tissue [MALT-lymphoma], in remission; D70.1 Agranulocytosis secondary to cancer chemotherapy; R11.0 Nausea | CPT/HCPCS: 71260; 74177; Q9967 ==